=== PATIENT | male | born 1985 ===

== ENCOUNTER 2017-12-09 20:05 | Inpatient (IN) | payer OTHER ==
[~2017-12-09] VITALS: Ht 182.9 cm; Wt 84.4 kg
[2017-12-09] MEDS ORDERED: SODIUM CHLORIDE 0.9% 1000ML 1,000 ML IV STA (20:20)
[2017-12-09] MEDS ORDERED: ONDANSETRON INJ 2 MG/ML 2 ML VIAL IV STA (20:20)
[2017-12-09] MEDS ORDERED: OPTIRAY 320 IV PRN (20:30)
[2017-12-09] MEDS: MoRPHine SULFATE 4 MG/ML 1 ML CARP\\VIAL IV PRN ×2 (20:37→23:10)
[2017-12-09 20:47] LABS: BASO % 0.1 %; BASO ABS # 0.01 K/uL (0-0.2); EOS % 0.1 %; EOS ABS # 0.01 K/uL (0-0.5); HEMATOCRIT 41.6 % (42-52); HEMOGLOBIN 14.9 g/dL (14.0-18.0); IG# 0.04 K/uL (0.00-0.02); LYMPH % 8.9 %; LYMPH ABS # 1.35 K/uL (1.2-3.4); MEAN CELL VOLUME 84.4 fL (80-100); MEAN CORPUSCULAR HEMOGLOBIN 30.2 pg (25-34); MEAN CORPUSCULAR HGB CONC 35.8 g/dl (32-36); MEAN PLATELET VOLUME 9.5 fL (7.4-10.4); MONO % 6.8 %; MONO ABS # 1.04 K/uL (0.11-0.59); NEUT % 83.8 %; NEUT ABS # 12.75 K/uL (1.4-6.5); PLATELET COUNT 213 K/uL (130-400); RED CELL DISTRIBUTION WIDTH CV 12.2 % (11.5-14.5); RED CELL DISTRIBUTION WIDTH SD 37.4 fL (36.4-46.3)
--- NOTE | 2017-12-09 20:51 | EMERGENCY ROOM VISIT NOTE ---
History Report prepared by Eddie: Patito Pinzon Under the Supervision of: Dr. Mckinley Brandon D.O. First contact with patient: 20:18 Chief Complaint: ABDOMINAL PAIN Stated Complaint: ABD PAIN History of Present Illness The patient is a 31 year old male who presents to the Emergency Room with complaints of persistent right lower abdominal quadrant abdominal pain that began earlier today. He reports that he has been experiencing increasing tenderness in the right lower quadrant and vomiting. The patient denies any diarrhea, fevers, back pain, or testicular pain. He reports that he had a similar episode about 3 years ago, noting that he was treated with antibiotics. The patient notes a history of atrial fibrillation. Source of History: patient Onset: earlier today Position: abdomen (RLQ) Quality: other (abdominal pain) Timing: other (persistent) Associated Symptoms: + vomiting, No fevers, No back pain, No diarrhea Note: Patient denies testicular pain. Review of Systems See HPI for pertinent positives & negatives. A total of 10 systems reviewed and were otherwise negative. Past Medical & Surgical Medical Problems: (1) Atrial fibrillation Family History Patient reports no known family medical history. No pertinent family history. Social History Smoking Status: Never Smoker Smokeless Tobacco Use: No Alcohol Use: none Drug Use: none Marital Status: Housing Status: lives with significant other Occupation Status: employed Current/Historical Medications No Active Prescriptions or Reported Meds Allergies Coded Allergies: No Known Allergies (Unverified , 12/09/17) Physical Exam Vital Signs Date Time Temp Pulse Resp B/P (MAP) Pulse Ox O2 Delivery O2 Flow Rate FiO2 12/09/17 22:05 88 18 150/75 97 Room Air 12/09/17 20:14 37.5 92 18 143/82 97 Room Air Physical Exam GENERAL: Patient is awake, alert, and in no acute distress. Patient is very anxious appearing and uncomfortable. EYES: The conjunctivae are clear. The pupils are round and reactive. EARS, NOSE, MOUTH AND THROAT: The nose is without any evidence of any deformity. Mucous membranes are moist tongue is midline NECK: The neck is nontender and supple. RESPIRATORY: Normal respiratory effort is noted there is no evidence of wheezing rhonchi or rales CARDIOVASCULAR: Regular rate and rhythm noted there no murmurs rubs or gallops normal S1 normal S2 GASTROINTESTINAL: The abdomen is soft with right lower quadrant tenderness to palpation and guarding in the right lower quadrant. BACK: No midline tenderness or or step-off noted range of motion in flexion extension as well as rotation no signs of muscle spasm noted MUSCULOSKELETAL/EXTREMITIES: There is no evidence of gross deformity full range of motion is noted in the hips and shoulders SKIN: There is no obvious evidence of any rash. There are no petechiae, pallor or cyanosis noted. NEUROLOGIC: Patient is awake alert and oriented x3 strength is symmetric patellar reflexes are 2+ bilaterally Medical Decision & Procedures ER Provider Diagnostic Interpretation: Radiology results as stated below per my review and radiologist interpretation: ABD/PELVIS IV CONTRAST ONLY CT DOSE: 353.75 mGy.cm HISTORY: Flank pain RLQ pain TECHNIQUE: Multiaxial CT images of the abdomen and pelvis were performed following the use of intravenous contrast. A dose lowering technique was utilized adhering to the principles of ALARA. COMPARISON STUDY: None. FINDINGS: Lung bases are clear. Liver spleen and pancreas enhance uniformly. Kidneys are negative for hydronephrosis. The upper abdominal bowel pattern is nonobstructive. The right flank demonstrates a distended appendix with associated appendicolith. Maximum diameters 1.5 cm. There is moderate surrounding periappendiceal infiltrative change with a trace amount of reactive fluid. There is air-containing elements throughout in this region appear to be bowel related to rather than extraluminal air. Well-defined drainable abscess or collection is not appreciated. There is a small amount of free fluid within the pelvic cul-de-sac. There are findings of scattered colonic diverticuli. There is no evidence for diverticulitis. IMPRESSION: 1. Acute appendicitis. 2. The appendix is distended to 1.5 cm with a contained appendicolith. 3. Moderate amount of periappendiceal infiltrative change combined with a small amount of surrounding reactive fluid. 4. No evidence for drainable abscess or collection at the current time. The above report was generated using voice recognition software. It may contain grammatical, syntax or spelling errors. Electronically signed by: Chi Wadsworth M.D. 12/09/2017 9:59 PM Dictated Date/Time: 12/09/2017 9:56 PM Laboratory Results Test 12/09/17 20:35 Urine Color YELLOW Urine Appearance CLEAR (CLEAR) Urine pH 5.5 (4.5-7.5) Urine Specific [place] 1.012 (1.000-1.030) Urine Protein NEG (NEG) Urine Glucose (UA) NEG (NEG) Urine Ketones NEG (NEG) Urine Occult Blood NEG (NEG) Urine Nitrite NEG (NEG) Urine Bilirubin NEG (NEG) Urine Urobilinogen NEG (NEG) Urine Leukocyte Esterase NEG (NEG) Direct Bilirubin 0.3 mg/dl (0-0.2) Lipase 62 U/L (73-393) Laboratory results per my review. Medications Administered Medications (Trade) Dose Ordered Sig/Cheko Route Start Time Stop Time Status Last Admin Dose Admin Sodium Chloride 1,000 ml @ 999 mls/hr Q1H1M STAT IV 12/09/17 20:20 12/09/17 21:20 DC 12/09/17 20:38 999 MLS/HR Ondansetron HCl (Zofran Inj) 4 mg NOW STAT IV 12/09/17 20:20 12/09/17 20:22 DC 12/09/17 20:37 4 MG Morphine Sulfate (MoRPHine SULFATE INJ) 4 mg Q15M PRN IV 12/09/17 20:30 12/10/17 01:21 DC 12/09/17 23:10 4 MG Piperacillin Sod/ Tazobactam Sod (Zosyn Iv) 4.5 gm NOW STAT IV 12/09/17 23:02 12/09/17 23:03 DC 12/09/17 23:10 4.5 GM Ondansetron HCl (Zofran Inj) 4 mg Q6H PRN IV 12/10/17 00:00 01/09/18 00:00 12/10/17 04:27 4 MG Morphine Sulfate (MoRPHine SULFATE INJ) 4 mg Q4H PRN IV 12/10/17 00:00 12/24/17 00:00 12/10/17 15:30 4 MG ED Course 2015: The patient was evaluated in room B8. A complete history and physical examination were performed. 2020: Ordered Zofran Inj 4mg IV and Sodium Chloride 1000 ml @ 999 mls/hr IV. 2029: Ordered Morphine Sulfate 4mg IV and Ioversol 100ml IV. 2302: Ordered Zosyn 4.5gm IV. 2309: I discussed the patient's case with Dr. Brooks, [facility] hospitalist. The patient will be evaluated for further management. 2315: I reevaluated the patient, who was resting. I updated him on test findings and the treatment plan. He verbalized agreement and understanding. He will contact the surgeon he would like to operate on him in the morning. Medical Decision Prior records/ancillary studies reviewed. Triage Nursing notes reviewed. The patient's history was concerning for abdominal pain. Differential diagnosis: Etiologies such as appendicitis, diverticulitis, PUD, biliary pathology, UTI, pancreatitis, obstruction, mesenteric ischemia, aortic pathology, infections, inflammatory bowel disease, renal colic, as well as others were entertained. The patient is a 31-year-old male who presented to the emergency department for right lower quadrant abdominal pain. The patient's history and physical exam appear to be consistent with appendicitis. The patient's laboratory and radiographic studies confirmed appendicitis. I discussed the patient's laboratory and radiographic studies with him. He was treated with IV fluids and IV and a biotics. I [facility] the request of the patient and his significant other because they wanted to try to defer surgery until the mornings they could have the surgical group with her choice. I discussed that this was not a standard approach in the the patient would normally need to go to surgery as soon as possible given the diagnosis. The patient wishes to defer surgery at this time. I did discuss with him that if his symptoms worsened or changed he would likely need to go to the OR immediately with the on-call surgeon who is currently available. The patient was agreeable to this plan. Medication Reconcilliation Current Medication List: was personally reviewed by me Blood Pressure Screening Patient's blood pressure: Elevated blood pressure Blood pressure disposition: Elevated BP felt to be situational Consults Time Called: 2308 Consulting Physician: Dr. Brooks [facility] hospitalist Returned Call: 2308 I discussed the patient's case with Dr. Brooks [facility] hospitalist. The patient will be evaluated for further management. Impression Primary Impression: Acute appendicitis Additional Impression: Right lower quadrant abdominal pain Scribe Attestation The scribe's documentation has been prepared under my direction and personally reviewed by me in its entirety. I confirm that the note above accurately reflects all work, treatment, procedures, and medical decision making performed by me. Departure Information Dispostion Being Evaluated By Hospitalist Prescriptions No Active Prescriptions or Reported Meds Forms Call Back Authorization, HOME CARE DOCUMENTATION FORM, IMPORTANT VISIT INFORMATION Patient Instructions My [facility] Problem Qualifiers Primary Impression: Acute appendicitis Acute appendicitis type: with localized peritonitis Qualified Codes: K35.3 - Acute appendicitis with localized peritonitis
[2017-12-09 21:12] LABS: ALBUMIN 3.9 gm/dl (3.4-5.0); CALCIUM 8.5 mg/dl (8.5-10.1); CREATININE 1.3 mg/dl (0.60-1.40); POTASSIUM 3.7 mmol/L (3.5-5.1)
[2017-12-09 21:15] LABS: TOTAL PROTEIN 7.5 gm/dl (6.4-8.2)
--- NOTE | 2017-12-09 22:01 | DIAGNOSTIC IMAGING REPORT ---
ABD/PELVIS IV CONTRAST ONLY CT DOSE: 353.75 mGy.cm HISTORY: Flank pain RLQ pain TECHNIQUE: Multiaxial CT images of the abdomen and pelvis were performed following the use of intravenous contrast. A dose lowering technique was utilized adhering to the principles of ALARA. COMPARISON STUDY: None. FINDINGS: Lung bases are clear. Liver spleen and pancreas enhance uniformly. Kidneys are negative for hydronephrosis. The upper abdominal bowel pattern is nonobstructive. The right flank demonstrates a distended appendix with associated appendicolith. Maximum diameters 1.5 cm. There is moderate surrounding periappendiceal infiltrative change with a trace amount of reactive fluid. There is air-containing elements throughout in this region appear to be bowel related to rather than extraluminal air. Well-defined drainable abscess or collection is not appreciated. There is a small amount of free fluid within the pelvic cul-de-sac. There are findings of scattered colonic diverticuli. There is no evidence for diverticulitis. IMPRESSION: 1. Acute appendicitis. 2. The appendix is distended to 1.5 cm with a contained appendicolith. 3. Moderate amount of periappendiceal infiltrative change combined with a small amount of surrounding reactive fluid. 4. No evidence for drainable abscess or collection at the current time. The above report was generated using voice recognition software. It may contain grammatical, syntax or spelling errors. Electronically signed by: Chi Wadsworth M.D. 12/09/2017 9:59 PM Dictated Date/Time: 12/09/2017 9:56 PM
[2017-12-09] MEDS ORDERED: PIPERACILLIN/TAZOBACTAM 4.5 GM/100ML D5W IV STA (23:02)
--- NOTE | 2017-12-09 23:22 | History and Physical ---
History & Physical Date & Time of Service: Dec 09, 2017 at 23:22 Chief Complaint: Abd Pain Primary Care Physician: No Doctor, Assigned History of Present Illness Source: patient 31 yo M presenting acute abdominal pain since 5 am this morning. Pain awoke him from sleep. Patient reports RLQ pain, initially diffuse then more sharp and localized , 5-8/10 intensity. He also reports nausea, 2 episodes of emesis , no fever, no diarrhea, dec'd appetite. He reports similar symptoms 4 years ago, treated medically with antibiotics for possible appendicitis diagnosed clinically. Symptoms resolved with therapy . no urinary symptoms, no hematemesis , no melena, no diarrhea. Past Medical/Surgical History RLQ Pain Acute Appendicitis Family History Hypertension Social History Smoking Status: Never Smoker Smokeless Tobacco Use: No Alcohol Use: none Drug Use: none Marital Status: Occupational Status: employed Immunizations History of Influenza Vaccine: Unknown History of Tetanus Vaccine?: Unknown History of Pneumococcal: Unknown History of Hepatitis B Vaccine: Unknown Allergies Coded Allergies: No Known Allergies (Unverified , 12/09/17) Home Medications No Active Prescriptions or Reported Meds Review of Systems Constitutional: No fever, No chills Respiratory: No cough, No sputum, No shortness of breath Cardiovascular: No chest pain, No edema, No palpitations Abdomen: + pain (RLQ), + nausea, + vomiting, No diarrhea, No GI bleeding Musculoskeletal: No swelling, No calf pain Genitourinary - Male: No hematuria, No dysuria, No urinary frequency, No urinary urgency Hematologic / Lymphatic: No abnormal bleeding/bruising, No swollen lymph nodes Integumentary: No rash, No itch Physical Exam Vital Signs Date Time Temp Pulse Resp B/P (MAP) Pulse Ox O2 Delivery O2 Flow Rate FiO2 12/09/17 22:05 88 18 150/75 97 Room Air 12/09/17 20:14 37.5 92 18 143/82 97 Room Air General Appearance: WD/WN, no apparent distress Eyes: PERRL, EOMI, sclerae normal Neck: supple, no adenopathy, no carotid bruits, trachea midline Respiratory/Chest: lungs clear, normal breath sounds, no respiratory distress Cardiovascular: regular rate, rhythm, no edema, no murmur, normal peripheral pulses Abdomen/GI: normal bowel sounds, soft, no organomegaly, + tenderness (RLQ ), + pertinent finding (no guarding, no rebound tenderness) Back: normal inspection, normal range of motion Extremities/Musculoskelatal: normal inspection, no calf tenderness, no pedal edema Neurologic/Psych: alert, normal mood/affect Skin: normal color, warm/dry, no rash Diagnostics Laboratory Results Results Past 24 Hours Test 12/09/17 20:35 Range/Units White Blood Count 15.20 4.8-10.8 K/uL Red Blood Count 4.93 4.7-6.1 M/uL Hemoglobin 14.9 14.0-18.0 g/dL Hematocrit 41.6 42-52 % Mean Corpuscular Volume 84.4 80-100 fL Mean Corpuscular Hemoglobin 30.2 25-34 pg Mean Corpuscular Hemoglobin Concent 35.8 32-36 g/dl Platelet Count 213 130-400 K/uL Mean Platelet Volume 9.5 7.4-10.4 fL Neutrophils (%) (Auto) 83.8 % Lymphocytes (%) (Auto) 8.9 % Monocytes (%) (Auto) 6.8 % Eosinophils (%) (Auto) 0.1 % Basophils (%) (Auto) 0.1 % Neutrophils # (Auto) 12.75 1.4-6.5 K/uL Lymphocytes # (Auto) 1.35 1.2-3.4 K/uL Monocytes # (Auto) 1.04 0.11-0.59 K/uL Eosinophils # (Auto) 0.01 0-0.5 K/uL Basophils # (Auto) 0.01 0-0.2 K/uL RDW Standard Deviation 37.4 36.4-46.3 fL RDW Coefficient of Variation 12.2 11.5-14.5 % Immature Granulocyte % (Auto) 0.3 % Immature Granulocyte # (Auto) 0.04 0.00-0.02 K/uL Urine Color YELLOW Urine Appearance CLEAR CLEAR Urine pH 5.5 4.5-7.5 Urine Specific [place] 1.012 1.000-1.030 Urine Protein NEG NEG Urine Glucose (UA) NEG NEG Urine Ketones NEG NEG Urine Occult Blood NEG NEG Urine Nitrite NEG NEG Urine Bilirubin NEG NEG Urine Urobilinogen NEG NEG Urine Leukocyte Esterase NEG NEG Sodium Level 135 136-145 mmol/L Potassium Level 3.7 3.5-5.1 mmol/L Chloride Level 101 98-107 mmol/L Carbon Dioxide Level 29 21-32 mmol/L Anion Gap 5.0 3-11 mmol/L Blood Urea Nitrogen 10 7-18 mg/dl Creatinine 1.30 0.60-1.40 mg/dl Est Creatinine Clear Calc Drug Dose 90.4 ml/min Estimated GFR () 84.3 Estimated GFR (Non- 72.7 BUN/Creatinine Ratio 7.5 10-20 Random Glucose 111 70-99 mg/dl Calcium Level 8.5 8.5-10.1 mg/dl Total Bilirubin 1.6 0.2-1 mg/dl Direct Bilirubin 0.3 0-0.2 mg/dl Aspartate Amino Transf (AST/SGOT) 21 15-37 U/L Alanine Aminotransferase (ALT/SGPT) 26 12-78 U/L Alkaline Phosphatase 77 45-117 U/L Total Protein 7.5 6.4-8.2 gm/dl Albumin 3.9 3.4-5.0 gm/dl Lipase 62 73-393 U/L Diagnostic Radiology ABD/PELVIS IV CONTRAST ONLY CT DOSE: 353.75 mGy.cm HISTORY: Flank pain RLQ pain TECHNIQUE: Multiaxial CT images of the abdomen and pelvis were performed following the use of intravenous contrast. A dose lowering technique was utilized adhering to the principles of ALARA. COMPARISON STUDY: None. FINDINGS: Lung bases are clear. Liver spleen and pancreas enhance uniformly. Kidneys are negative for hydronephrosis. The upper abdominal bowel pattern is nonobstructive. The right flank demonstrates a distended appendix with associated appendicolith. Maximum diameters 1.5 cm. There is moderate surrounding periappendiceal infiltrative change with a trace amount of reactive fluid. There is air-containing elements throughout in this region appear to be bowel related to rather than extraluminal air. Well-defined drainable abscess or collection is not appreciated. There is a small amount of free fluid within the pelvic cul-de-sac. There are findings of scattered colonic diverticuli. There is no evidence for diverticulitis. IMPRESSION: 1. Acute appendicitis. 2. The appendix is distended to 1.5 cm with a contained appendicolith. 3. Moderate amount of periappendiceal infiltrative change combined with a small amount of surrounding reactive fluid. 4. No evidence for drainable abscess or collection at the current time. Impression Assessment and Plan 31 yo M presenting with RLQ pain, CT findings consistent with Appendicitis Acute Appendicitis - RLQ pain , afebrile, +leukocytosis - previous history of medically managed suspected appendicitis 4 yrs prior - CT abdomen: appendicitis. distended appendix with appendicolith - Admit to Med/Surg - IV NS 100 mls/hr - IV Zosyn 4.5 q8 - CBC, CMP - General Surgery consult Paroxysmal Afib - currently RRR - has never been treated for rate control or anticoagulation - F/u EKG DVT PPX - SCD's only Code: Full Patient declines for iron miner blasting surgeon Dr. Mcbride to assess him for surgery. [facility]. Patient made aware of risks of no surgery including rupture, sepsis. Patient understands and prefers antibiotic until he can be seen by another surgeon. Attending addendum: I have physically seen this patient, have supervised the medical residents activities, and agree with the H&P unless as otherwise noted. Assessment and Plan: Acute appendicitis-- Surgical preference as noted above. Patient is aware of potential complications including peritonitis, worsening general condition requiring urgent surgery. Zosyn 4.5 g IV every 8 hours. Morphine sulfate 4 mg IV every 4 hours as needed. Zofran 4 mg IV every 6 hours as needed. CBCD, chemistry profile and magnesium level in the a.m. General surgery [facility] consult per patient request in the a.m. Patient is aware, as is his who is present, that if he has any worsening symptoms overnight, the on-call surgeon will be called, and he is agreeable to surgery at that time. Paroxysmal atrial fibrillation-- Reportedly had one episode in the past, that did not require treatment. EKG is normal. Follow clinical examination, vital signs and laboratories to be repeated in the a.m. Advanced Directives Existing Advance Directive: No Existing Living Will: No Existing Power of Vp Business Development: No Resuscitation Status VTE Prophylaxis Will order VTE Prophylaxis: Yes Social Service Consult None Apply Note Total Time: Critical Care 30 - 74 minutes Resident Tracking Resident Involvement: Resident Care Provided Care Provided: Adult Hospital Medicine
[2017-12-10] VITALS (12 sets, daily range): BP systolic 106–163; BP diastolic 63–84; PULSE 65–93; TEMP 36.7–37.6; O2SAT 95–99; Ht 182.9 cm; Wt 84.4 kg
[2017-12-10] MEDS ORDERED: POLYETHYLENE (MIRALAX) 17 GM PACK PO PRN
[2017-12-10] MEDS ORDERED: ACETAMINOPHEN 325 MG TAB PO PRN
[2017-12-10] MEDS ORDERED: PIPERACILL/TAZOBAC CONSULT ACTIVE PRN
[2017-12-10] MEDS ORDERED: PIPERACILL/TAZOBAC IV 4.5 GM in DEXTROSE 5% 100ML 100 ML IV SCH ×2
[2017-12-10] MEDS ORDERED: MAGNESIUM HYDROXIDE SUSP 30 ML UDC PO PRN
[2017-12-10] MEDS: SODIUM CHLORIDE 0.9% 1000ML 1,000 ML IV SCH ×3 (01:30→22:47)
[2017-12-10] MEDS: PIPERACILL/TAZOBAC IV 3.375 GM in NSS 100ML IV SCH ×4 (03:52→19:45)
[2017-12-10] MEDS: MoRPHine SULFATE 4 MG/ML 1 ML CARP\\VIAL IV PRN ×2 (03:52→15:30)
[2017-12-10] MEDS ORDERED: HYDROmorphone INJ 2 MG/ML SYR/VIAL IV STA (04:33)
[2017-12-10] MEDS ORDERED: CEFOXITIN SOD 2 GM VIAL IV STA (05:18)
--- NOTE | 2017-12-10 05:18 | Surgery Consultation ---
Consultation Date of Consultation: Dec 10, 2017. Attending Physician: Willie Brooks M.D. History of Present Illness 31 yo M presenting acute abdominal pain since 5 am this morning. Pain awoke him from sleep. Patient reports RLQ pain, initially diffuse then more sharp and localized , 5-8/10 intensity. He also reports nausea, 2 episodes of emesis , no fever, no diarrhea, dec'd appetite. He reports similar symptoms 4 years ago, treated medically with antibiotics for possible appendicitis diagnosed clinically. Symptoms resolved with therapy . no urinary symptoms, no hematemesis , no melena, no diarrhea. I got call for consult this pt, because of worse abdominal pain, pt wants to conservative treatment of his acute appendicitis, now pt's abdominal pain is worse, pt his want to do appendectomy Past Medical/Surgical History Medical Problems: (1) Acute appendicitis Status: Acute (2) Right lower quadrant abdominal pain Status: Acute Family History Patient reports no known family medical history. Social History Smoking Status: Never Smoker Smokeless Tobacco Use: No Alcohol Use: none Drug Use: none Marital Status: Housing Status: lives with significant other Occupation Status: employed Allergies Coded Allergies: No Known Allergies (Unverified , 12/09/17) Home Medications No Active Prescriptions or Reported Meds Current Inpatient Medications Current Inpatient Medications Medications (Trade) Dose Ordered Sig/Cheko Route Start Time Stop Time Status Last Admin Dose Admin Ioversol (Optiray 320) 100 ml UD PRN IV 12/09/17 20:30 12/13/17 20:29 Acetaminophen (Tylenol Tab) 650 mg Q4H PRN PO 12/10/17 00:00 01/09/18 00:00 Al Hydrox/Mg Hydrox/Simethicone (Maalox Max Susp) 15 ml Q4H PRN PO 12/10/17 00:00 01/09/18 00:00 Magnesium Hydroxide (Milk Of Magnesia Susp) 30 ml Q6H PRN PO 12/10/17 00:00 01/09/18 00:00 Polyethylene (Miralax Powder Packet) 17 gm DAILY PRN PO 12/10/17 00:00 01/09/18 00:00 Ondansetron HCl (Zofran Inj) 4 mg Q6H PRN IV 12/10/17 00:00 01/09/18 00:00 12/10/17 04:27 4 MG Morphine Sulfate (MoRPHine SULFATE INJ) 4 mg Q4H PRN IV 12/10/17 00:00 12/24/17 00:00 12/10/17 03:52 4 MG Miscellaneous Information (Consult) 1 ea UD PRN N/A 12/10/17 00:00 01/09/18 00:00 Sodium Chloride 1,000 ml @ 100 mls/hr Q10H IV 12/10/17 02:00 01/09/18 01:59 12/10/17 01:30 100 MLS/HR Piperacillin Sod/ Tazobactam Sod 3.375 gm/Sodium Chloride 115 ml @ 28.75 mls/ hr Q8H IV 12/10/17 04:00 12/20/17 03:59 12/10/17 03:52 28.75 MLS/HR Review of Systems Constitutional: No fever, No chills, No sweats, No weight loss, No weakness, No fatigue, No problem reported Eyes: No worsening of vision, No eye pain, No redness, No discharge, No diplopia, No problem reported ENT: No hearing loss, No unusual epistaxis, No nasal symptoms, No sore throat, No tinnitus, No dental problems, No trouble swallowing, No problem reported Respiratory: No cough, No sputum, No wheezing, No shortness of breath, No dyspnea on exertion, No dyspnea at rest, No hemoptysis, No problem reported Cardiovascular: No chest pain, No orthopnea, No PND, No edema, No claudication , No palpitations, No problem reported Abdomen: + pain, + nausea, + vomiting Musculoskeletal: No joint pain, No muscle pain, No swelling, No calf pain, No problem reported Genitourinary - Male: No hematuria, No dysuria, No urinary frequency, No urinary urgency, No urinary hesitancy, No urinary retention, No urinary incontinence, No penile discharge, No lesions, No impotence, No problem reported Neurologic: No memory loss, No paralysis, No weakness, No numbness/tingling, No vertigo, No balance problems, No problem reported Psychiatric: No depression symptoms, No anhedonism, No anxiety, No insomnia, No substance abuse, No problem reported Endocrine: No fatigue, No excessive thirst, No excessive urination, No problem reported Hematologic / Lymphatic: No abnormal bleeding/bruising, No clotting problems, No swollen lymph nodes, No night sweats, No problem reported Allergic / Immunologic: No environmental allergies, No seasonal allergies, No pet sensitivities, No food allergies, No hives, No frequent infections, No poor healing, No prolonged convalescence, No problem reported Physical Exam Date Time Temp Pulse Resp B/P (MAP) Pulse Ox O2 Delivery O2 Flow Rate FiO2 12/10/17 02:04 37.0 75 16 125/76 Room Air 12/10/17 01:15 Room Air 12/10/17 01:15 37.0 75 16 125/76 (92) 98 Room Air 12/10/17 00:31 79 18 133/65 98 Room Air 12/09/17 22:05 88 18 150/75 97 Room Air 12/09/17 20:14 37.5 92 18 143/82 97 Room Air General Appearance: WD/WN, + mild distress Head: normocephalic Eyes: normal inspection ENT: normal ENT inspection Neck: supple, no JVD Respiratory/Chest: chest non-tender, lungs clear Cardiovascular: regular rate, rhythm, no edema, no gallop, no JVD, no murmur Abdomen/GI: normal bowel sounds, no pulsatile mass, + tenderness (at RLQ, ), + guarding, + rebound Extremities/Musculoskelatal: normal inspection, no calf tenderness, normal capillary refill Neurologic/Psych: no motor/sensory deficits, alert, normal mood/affect Skin: normal color, warm/dry, no rash Lymphatic: no adenopathy Laboratory Results Last 24 Hours Test 12/09/17 20:35 12/10/17 04:44 White Blood Count 15.20 K/uL Red Blood Count 4.93 M/uL Hemoglobin 14.9 g/dL Hematocrit 41.6 % Mean Corpuscular Volume 84.4 fL Mean Corpuscular Hemoglobin 30.2 pg Mean Corpuscular Hemoglobin Concent 35.8 g/dl Platelet Count 213 K/uL Mean Platelet Volume 9.5 fL Neutrophils (%) (Auto) 83.8 % Lymphocytes (%) (Auto) 8.9 % Monocytes (%) (Auto) 6.8 % Eosinophils (%) (Auto) 0.1 % Basophils (%) (Auto) 0.1 % Neutrophils # (Auto) 12.75 K/uL Lymphocytes # (Auto) 1.35 K/uL Monocytes # (Auto) 1.04 K/uL Eosinophils # (Auto) 0.01 K/uL Basophils # (Auto) 0.01 K/uL RDW Standard Deviation 37.4 fL RDW Coefficient of Variation 12.2 % Immature Granulocyte % (Auto) 0.3 % Immature Granulocyte # (Auto) 0.04 K/uL Urine Color YELLOW Urine Appearance CLEAR Urine pH 5.5 Urine Specific [place] 1.012 Urine Protein NEG Urine Glucose (UA) NEG Urine Ketones NEG Urine Occult Blood NEG Urine Nitrite NEG Urine Bilirubin NEG Urine Urobilinogen NEG Urine Leukocyte Esterase NEG Sodium Level 135 mmol/L Potassium Level 3.7 mmol/L Chloride Level 101 mmol/L Carbon Dioxide Level 29 mmol/L Anion Gap 5.0 mmol/L Blood Urea Nitrogen 10 mg/dl Creatinine 1.30 mg/dl Est Creatinine Clear Calc Drug Dose 90.4 ml/min Estimated GFR () 84.3 Estimated GFR (Non- 72.7 BUN/Creatinine Ratio 7.5 Random Glucose 111 mg/dl Calcium Level 8.5 mg/dl Total Bilirubin 1.6 mg/dl Direct Bilirubin 0.3 mg/dl Aspartate Amino Transf (AST/SGOT) 21 U/L Alanine Aminotransferase (ALT/SGPT) 26 U/L Alkaline Phosphatase 77 U/L Total Protein 7.5 gm/dl Albumin 3.9 gm/dl Lipase 62 U/L Assessment & Plan CT scan-FINDINGS: Lung bases are clear. Liver spleen and pancreas enhance uniformly. Kidneys are negative for hydronephrosis. The upper abdominal bowel pattern is nonobstructive. The right flank demonstrates a distended appendix with associated appendicolith. Maximum diameters 1.5 cm. There is moderate surrounding periappendiceal infiltrative change with a trace amount of reactive fluid. There is air-containing elements throughout in this region appear to be bowel related to rather than extraluminal air. Well-defined drainable abscess or collection is not appreciated. There is a small amount of free fluid within the pelvic cul-de-sac. There are findings of scattered colonic diverticuli. There is no evidence for diverticulitis. IMPRESSION: 1. Acute appendicitis. 2. The appendix is distended to 1.5 cm with a contained appendicolith. 3. Moderate amount of periappendiceal infiltrative change combined with a small amount of surrounding reactive fluid. 4. No evidence for drainable abscess or collection at the current time. Assessment: pt is a 31 year old male who presents to ER with one day history RLQ pain, pt had CT scan Dx- acute appendicitis, pt and his want to do conservative treatment first, now pt has worse abdominal pain, pt and his want to do appendectomy, I recommend to do laparoscopic appendectomy, possible open , D/W benefits, risks and alternatives of the procedure, the risks - infection, bleeding, abscess and injury bowel, pt and his understood, they agree with the surgery, I answered all questions,
[2017-12-10] MEDS ORDERED: CEFOXITIN IV 2,000 MG in DEXTROSE 5% 50ML 50 ML IV SCH (06:00)
--- NOTE | 2017-12-10 06:20 | History & Physical Bridge Note ---
H&P Re-Evaluation Bridge Note: I have examined the patient, reviewed the History & Physical and in the interval since the performance of the History & Physical I have noted the following changes of clinical significance: No changes noted
[2017-12-10 06:26] LABS: BASO % 0.1 %; BASO ABS # 0.01 K/uL (0-0.2); EOS % 0.1 %; EOS ABS # 0.01 K/uL (0-0.5); HEMATOCRIT 42.6 % (42-52); HEMOGLOBIN 15.2 g/dL (14.0-18.0); IG# 0.05 K/uL (0.00-0.02); LYMPH % 5.1 %; MEAN CELL VOLUME 85.2 fL (80-100); MEAN CORPUSCULAR HEMOGLOBIN 30.4 pg (25-34); MEAN CORPUSCULAR HGB CONC 35.7 g/dl (32-36); MEAN PLATELET VOLUME 10.2 fL (7.4-10.4); MONO % 5.1 %; MONO ABS # 0.91 K/uL (0.11-0.59); NEUT % 89.3 %; NEUT ABS # 15.91 K/uL (1.4-6.5); PLATELET COUNT 228 K/uL (130-400); RED CELL DISTRIBUTION WIDTH CV 12.3 % (11.5-14.5); WHITE BLOOD COUNT 17.79 K/uL (4.8-10.8)
[2017-12-10] MEDS ORDERED: MIDAZOLAM HCL 1 MG/ML 2ML VIAL ONE (06:34)
[2017-12-10] MEDS ORDERED: FENTANYL CITRATE INJ 50 MCG/1 ML 2 ML VIAL ONE ×2 (06:34→07:18)
[2017-12-10] MEDS ORDERED: PROPOFOL IV EMULSION 10 MG/ML 20 ML VIAL IV ONE (06:41)
[2017-12-10] MEDS ORDERED: LIDOCAINE HCL 2% 2 ML VIAL (20MG/ML) ONE (06:41)
[2017-12-10] MEDS ORDERED: LIDOCAINE HCL 1% 20 ML VIAL ONE (06:49)
[2017-12-10] MEDS ORDERED: BACITRACIN OINT 15 GM TUBE ONE (06:49)
[2017-12-10] MEDS ORDERED: BUPIVACAINE 0.5 % 5 MG/1 ML MPF 30ML VIAL ONE (06:50)
[2017-12-10 07:00] LABS: ALBUMIN 3.6 gm/dl (3.4-5.0); CALCIUM 8.3 mg/dl (8.5-10.1); CREATININE 1.34 mg/dl (0.60-1.40)
[2017-12-10] MEDS ORDERED: LABETALOL HCL IV 5 MG/ML 20ML IV PRN (07:00)
[2017-12-10] MEDS ORDERED: FLUMAZENIL 0.1 MG/1 ML 10 ML VIAL IV PRN (07:00)
[2017-12-10] MEDS ORDERED: MEPERIDINE HCL 25 MG/ML CARP IV PRN (07:00)
[2017-12-10] MEDS ORDERED: EpHEDrine SULFATE INJ 50 MG/ML AMP IV PRN (07:00)
[2017-12-10] MEDS ORDERED: ONDANSETRON INJ 2 MG/ML 2 ML VIAL IV PRN ×2 (07:00)
[2017-12-10] MEDS ORDERED: HYDROmorphone INJ 2 MG/ML SYR/VIAL IV PRN (07:00)
[2017-12-10] MEDS ORDERED: NALOXONE HCL 0.4 MG/1 ML VIAL/CARP IV PRN (07:00)
[2017-12-10] MEDS ORDERED: ATROPINE SULFATE 0.1 MG/ML 5ML SYR IV PRN (07:00)
[2017-12-10] MEDS ORDERED: PHENYLEPHRINE 100MCG/ML 5ML SYR IV PRN (07:00)
[2017-12-10] MEDS ORDERED: DEXAMETHASONE SOD INJ 4 MG/ML VIAL ONE ×2 (07:06→07:18)
[2017-12-10] MEDS ORDERED: ONDANSETRON INJ 2 MG/ML 2 ML VIAL ONE (07:17)
[2017-12-10] MEDS ORDERED: ROCURONIUM BROMIDE 10 MG/ML 5 ML VIAL IV ONE (07:18)
[2017-12-10] MEDS ORDERED: GLYCOPYRROLATE INJ 0.2 MG/ML VIAL ONE (07:28)
[2017-12-10] MEDS ORDERED: NEOSTIGMINE METHYLSULFATE 5 MG/5 ML SYR ONE (07:28)
--- NOTE | 2017-12-10 08:04 | [facility] Post Operative Brief Note ---
Immediate Operative Summary Operative Date Dec 10, 2017. Pre-Operative Diagnosis Acute appendicitis Post-Operative Diagnosis Perforated acute appendicitis, peritonitis Procedure(s) Performed Laparoscopic appendectomy Surgeon Dr. Mcbride [employer] Lead Surgeon(s) Peggy Gill PA-C Estimated Blood Loss 10 ml Findings Consistent with Post-Op Diagnosis Perforated acute appendicitis, peritonitis Fluids (cc crystalloids) 1000ml Specimens A: Appendix Drains JANUSZ x1 Anesthesia Type General Complication(s) none Disposition Accompanied Pt To Recover: yes Disposition: Recovery Room / PACU
[2017-12-10] MEDS: FENTANYL CITRATE INJ 50 MCG/1 ML 2 ML VIAL IV PRN ×2 (08:39→08:45)
--- NOTE | 2017-12-10 08:50 | Anesthesiology Progress Note ---
Anesthesia Post Op Note Date & Time Dec 10, 2017 at 08:50 Vital Signs Pain Intensity: 3 Vital Signs Past 12 Hours Date Time Temp Pulse Resp B/P (MAP) Pulse Ox O2 Delivery O2 Flow Rate FiO2 12/10/17 08:40 85 14 151/81 100 Oxymask 10 12/10/17 08:30 98 22 155/89 100 Oxymask 10 12/10/17 08:21 37.3 115 17 144/86 100 Oxymask 10 12/10/17 05:57 37.0 83 18 133/83 (100) 99 Room Air 12/10/17 02:04 37.0 75 16 125/76 Room Air 12/10/17 01:15 Room Air 12/10/17 01:15 37.0 75 16 125/76 (92) 98 Room Air 12/10/17 00:31 79 18 133/65 98 Room Air 12/09/17 22:05 88 18 150/75 97 Room Air Notes Mental Status: alert / awake / arousable, participated in evaluation Pt Amnestic to Procedure: Yes Nausea / Vomiting: adequately controlled Pain: adequately controlled Airway Patency, RR, SpO2: stable & adequate BP & HR: stable & adequate Hydration State: stable & adequate Anesthetic Complications: no major complications apparent
--- NOTE | 2017-12-10 09:08 | OPERATIVE REPORT ---
DATE OF OPERATION: 12/10/2017 PREOPERATIVE DIAGNOSIS: Acute appendicitis. POSTOPERATIVE DIAGNOSES: Perforated acute appendicitis, peritonitis. OPERATION: Laparoscopic appendectomy. SURGEON: Dr. Christal Mcbride. INTERNET [employer]ER[employer] SPECIALIST: Peggy Gill PA-C ANESTHESIA: General. ESTIMATED BLOOD LOSS: About 10 mL. FINDINGS: Acute appendicitis with perforation and peritonitis. COMPLICATIONS: None. INDICATIONS FOR THE PROCEDURE: This is a 31-year-old gentleman who was admitted to the hospital for acute appendicitis and the patient had a friend who is a surgeon from outside, recommended the patient towards conservative treatment first. However, overnight, the patient developed severe abdominal pain and in the morning today, and I got a call and counseled this patient around 5:00 a.m. today this morning and once I reviewed the CT scan, talked to the patient and did physical exam. I recommended to do laparoscopic appendectomy and possible open. I did talk to the patient and the patient's about the benefit, risk, alternate procedure. I indicated the risks may include but not limited such as bleeding, infection, abscess, injury to the bowel, sepsis. They understand and they agreed to proceed with the procedure. The patient signed informed consent and I answered all questions. DETAILS OF PROCEDURE: We brought the patient to the OR, put the patient in the supine position. The patient received SCD on bilateral legs to prevent DVT. Also, the patient received 2 g cefoxitin IV for prophylactic antibiotic. The patient received general anesthesia without difficulty. The patient also received the insertion of Renner catheter. The abdomen was prepped and draped in routine sterile fashion. After time out, I injected the local anesthesia by using 1% lidocaine mixed with 0.5% Marcaine just above umbilicus and then made a small incision just above umbilicus, opened fascia and opened peritoneum under direct vision, put a Saray trocar in, connected to CO2 to create pneumoperitoneum. Flow rate is 6 L per minute. Pressure not more than 14 mmHg. Once we got nice pneumoperitoneum, we put a camera in, looked around the abdomen. There was some fluid on the pelvis and right upper quadrant area. We did see there significant acute appendicitis in larger also and in the middle part the appendix, early perforation and stool has come out from the appendix. There is some leak from the appendix; the local inflammation is significant and however, no more finding on the liver and another part of the small bowel, large bowel, and the patient also had a right inguinal hernia, but no content in the right inguinal hernia. At this moment, we put another two 5 mm trocar on the left lower quadrant area. Once all trocars in, I put the suction and suctioned all the fluid out, and then we mobilized the appendix again as there is perforation in appendicitis with peritonitis. Then, I used a [place] to make a window on the base of the appendiceal between the appendix and I chose a 45 mm Endo-CATIE staple transection on the base of the appendix, rechecked this, staple line is intact. No leak, no active bleeding. Then I used a harmonic take down of the appendiceal without difficulty. No active bleeding and then we removed the appendix through the catch bag. Also, we picked up with a stone, put back in. Then we removed through the catch bag appendix and the stone, then we reinserted Saray trocar in and used of normal saline to flush the abdomen and suctioned fluid out this morning and then we decided to put the JANUSZ drainage 10 mm. We put a 10 mm JANUSZ drainage on the right lower quadrant area and tapered towards the pelvic area. We checked the staple line intact. No active bleeding, no leak. Then, we removed all trocar under direct vision. No active bleeding from trocar sites. Pneumoperitoneum was released. I then closed the umbilical incision fascial layer by using #1 Vicryl [id number] x2, closed subcutaneous layer by using 2-0 Vicryl continuous running, closed the skin by using 4-0 Vicryl continuous running, closed another two 5 mm trocar site skin only by using 4-0 Vicryl and then we put the dressing on. The patient tolerated the procedure well. All the instrument, needle, sponge count correct x2 at the end of case and the patient transferred to recovery room in stable condition. After the procedure, I did talk to the patient's about the OR finding and procedure we did. She understands. I attest to the content of the Intraoperative Record and any orders documented therein. Any exception s are noted below.
[2017-12-10] MEDS: OXYCODONE/ACETAMINOPHEN 5-325 TAB PO PRN ×2 (18:04→22:47)
--- NOTE | 2017-12-10 18:18 | Surgery Progress Note ---
Surgery Progress Note Date of Service Dec 10, 2017. Subjective F/U S/P lap appy for perforated appendicitis, pt is doing better, no nausea, no vomiting, good control pain, JANUSZ intact. some fluid, look like pus., culture sent. l Objective Vital Signs: Date Time Temp Pulse Resp B/P (MAP) Pulse Ox O2 Delivery O2 Flow Rate FiO2 12/10/17 15:18 37.6 88 16 131/69 (89) 97 Nasal Cannula 3.0 12/10/17 12:15 37.3 80 18 117/71 (86) 97 Nasal Cannula 2.0 12/10/17 11:15 80 16 107/63 (78) 96 12/10/17 10:15 87 16 106/71 (83) 96 12/10/17 09:50 37.0 84 16 137/79 (98) 97 Nasal Cannula 2.0 12/10/17 09:15 Room Air 12/10/17 09:15 95 Nasal Cannula 2.0 12/10/17 09:15 37.4 93 20 135/84 (101) 95 Nasal Cannula 2.0 12/10/17 09:00 90 14 142/84 97 Nasal Cannula 2 12/10/17 08:50 37.8 91 16 130/71 97 Nasal Cannula 2 12/10/17 08:40 85 14 151/81 100 Oxymask 10 12/10/17 08:30 98 22 155/89 100 Oxymask 10 12/10/17 08:21 37.3 115 17 144/86 100 Oxymask 10 12/10/17 05:57 37.0 83 18 133/83 (100) 99 Room Air 12/10/17 02:04 37.0 75 16 125/76 Room Air 12/10/17 01:15 Room Air 12/10/17 01:15 37.0 75 16 125/76 (92) 98 Room Air 12/10/17 00:31 79 18 133/65 98 Room Air 12/09/17 22:05 88 18 150/75 97 Room Air 12/09/17 20:14 37.5 92 18 143/82 97 Room Air General Appearance: WD/WN, no apparent distress Head: normocephalic Neck: supple, no JVD Respiratory/Chest: chest non-tender, lungs clear Cardiovascular: regular rate, rhythm, no edema, no gallop, no JVD Abdomen: normal bowel sounds, non distended, soft, + tenderness Incision(s): clean, dry, intact Extremities: normal range of motion, non-tender, normal inspection Laboratory Results: Results Past 24 Hours Test 12/09/17 20:35 12/10/17 06:05 Range/Units White Blood Count 15.20 17.79 4.8-10.8 K/uL Red Blood Count 4.93 5.00 4.7-6.1 M/uL Hemoglobin 14.9 15.2 14.0-18.0 g/dL Hematocrit 41.6 42.6 42-52 % Mean Corpuscular Volume 84.4 85.2 80-100 fL Mean Corpuscular Hemoglobin 30.2 30.4 25-34 pg Mean Corpuscular Hemoglobin Concent 35.8 35.7 32-36 g/dl Platelet Count 213 228 130-400 K/uL Mean Platelet Volume 9.5 10.2 7.4-10.4 fL Neutrophils (%) (Auto) 83.8 89.3 % Lymphocytes (%) (Auto) 8.9 5.1 % Monocytes (%) (Auto) 6.8 5.1 % Eosinophils (%) (Auto) 0.1 0.1 % Basophils (%) (Auto) 0.1 0.1 % Neutrophils # (Auto) 12.75 15.91 1.4-6.5 K/uL Lymphocytes # (Auto) 1.35 0.90 1.2-3.4 K/uL Monocytes # (Auto) 1.04 0.91 0.11-0.59 K/uL Eosinophils # (Auto) 0.01 0.01 0-0.5 K/uL Basophils # (Auto) 0.01 0.01 0-0.2 K/uL RDW Standard Deviation 37.4 38.0 36.4-46.3 fL RDW Coefficient of Variation 12.2 12.3 11.5-14.5 % Immature Granulocyte % (Auto) 0.3 0.3 % Immature Granulocyte # (Auto) 0.04 0.05 0.00-0.02 K/uL Urine Color YELLOW Urine Appearance CLEAR CLEAR Urine pH 5.5 4.5-7.5 Urine Specific [place] 1.012 1.000-1.030 Urine Protein NEG NEG Urine Glucose (UA) NEG NEG Urine Ketones NEG NEG Urine Occult Blood NEG NEG Urine Nitrite NEG NEG Urine Bilirubin NEG NEG Urine Urobilinogen NEG NEG Urine Leukocyte Esterase NEG NEG Sodium Level 135 137 136-145 mmol/L Potassium Level 3.7 4.0 3.5-5.1 mmol/L Chloride Level 101 104 98-107 mmol/L Carbon Dioxide Level 29 27 21-32 mmol/L Anion Gap 5.0 6.0 3-11 mmol/L Blood Urea Nitrogen 10 11 7-18 mg/dl Creatinine 1.30 1.34 0.60-1.40 mg/dl Est Creatinine Clear Calc Drug Dose 90.4 95.4 ml/min Estimated GFR () 84.3 81.2 Estimated GFR (Non- 72.7 70.1 BUN/Creatinine Ratio 7.5 8.1 10-20 Random Glucose 111 129 70-99 mg/dl Calcium Level 8.5 8.3 8.5-10.1 mg/dl Total Bilirubin 1.6 2.1 0.2-1 mg/dl Direct Bilirubin 0.3 0-0.2 mg/dl Aspartate Amino Transf (AST/SGOT) 21 15 15-37 U/L Alanine Aminotransferase (ALT/SGPT) 26 23 12-78 U/L Alkaline Phosphatase 77 68 45-117 U/L Total Protein 7.5 7.0 6.4-8.2 gm/dl Albumin 3.9 3.6 3.4-5.0 gm/dl Lipase 62 73-393 U/L Globulin 3.4 2.5-4.0 gm/dl Albumin/Globulin Ratio 1.1 0.9-2 Microbiology Results 12/10/17 Gram Stain, Received Pending 12/10/17 Wound Culture, Received Pending Assessment & Plan full liquid diet, OOB repeat labs in am, ID consult will F/U full liquids
--- NOTE | 2017-12-10 18:47 | Family Medicine Progress Note ---
Progress Note Date of Service Dec 10, 2017. Subjective Pt evaluation today including: conversation w/ patient, physical exam, chart review, lab review Pain: 5/10 post surgery PO Intake: tolerating full liquids Voiding: no voiding problems Constitutional: No fever, No chills Respiratory: No shortness of breath Cardiovascular: No chest pain Abdomen: + pain, No nausea, No vomiting Male : No dysuria Medications Current Inpatient Medications Medications (Trade) Dose Ordered Sig/Cheko Route Start Time Stop Time Status Last Admin Dose Admin Ioversol (Optiray 320) 100 ml UD PRN IV 12/09/17 20:30 12/13/17 20:29 Acetaminophen (Tylenol Tab) 650 mg Q4H PRN PO 12/10/17 00:00 01/09/18 00:00 Al Hydrox/Mg Hydrox/Simethicone (Maalox Max Susp) 15 ml Q4H PRN PO 12/10/17 00:00 01/09/18 00:00 Magnesium Hydroxide (Milk Of Magnesia Susp) 30 ml Q6H PRN PO 12/10/17 00:00 01/09/18 00:00 Polyethylene (Miralax Powder Packet) 17 gm DAILY PRN PO 12/10/17 00:00 01/09/18 00:00 Ondansetron HCl (Zofran Inj) 4 mg Q6H PRN IV 12/10/17 00:00 01/09/18 00:00 12/10/17 04:27 4 MG Morphine Sulfate (MoRPHine SULFATE INJ) 4 mg Q4H PRN IV 12/10/17 00:00 12/24/17 00:00 12/10/17 15:30 4 MG Miscellaneous Information (Consult) 1 ea UD PRN N/A 12/10/17 00:00 01/09/18 00:00 Sodium Chloride 1,000 ml @ 100 mls/hr Q10H IV 12/10/17 02:00 01/09/18 01:59 12/10/17 13:53 100 MLS/HR Piperacillin Sod/ Tazobactam Sod 3.375 gm/Sodium Chloride 115 ml @ 28.75 mls/ hr Q8H IV 12/10/17 04:00 12/20/17 03:59 12/10/17 12:06 28.75 MLS/HR Oxycodone/ Acetaminophen (Percocet 5-325mg Tab) 1 tab Q4H PRN PO 12/10/17 16:45 12/24/17 16:44 12/10/17 18:04 1 TAB Objective Vital Signs Date Time Temp Pulse Resp B/P (MAP) Pulse Ox O2 Delivery O2 Flow Rate FiO2 12/10/17 15:18 37.6 88 16 131/69 (89) 97 Nasal Cannula 3.0 12/10/17 12:15 37.3 80 18 117/71 (86) 97 Nasal Cannula 2.0 12/10/17 11:15 80 16 107/63 (78) 96 12/10/17 10:15 87 16 106/71 (83) 96 12/10/17 09:50 37.0 84 16 137/79 (98) 97 Nasal Cannula 2.0 12/10/17 09:15 Room Air 12/10/17 09:15 95 Nasal Cannula 2.0 12/10/17 09:15 37.4 93 20 135/84 (101) 95 Nasal Cannula 2.0 12/10/17 09:00 90 14 142/84 97 Nasal Cannula 2 12/10/17 08:50 37.8 91 16 130/71 97 Nasal Cannula 2 12/10/17 08:40 85 14 151/81 100 Oxymask 10 12/10/17 08:30 98 22 155/89 100 Oxymask 10 12/10/17 08:21 37.3 115 17 144/86 100 Oxymask 10 12/10/17 05:57 37.0 83 18 133/83 (100) 99 Room Air 12/10/17 02:04 37.0 75 16 125/76 Room Air 12/10/17 01:15 Room Air 12/10/17 01:15 37.0 75 16 125/76 (92) 98 Room Air 12/10/17 00:31 79 18 133/65 98 Room Air 12/09/17 22:05 88 18 150/75 97 Room Air 12/09/17 20:14 37.5 92 18 143/82 97 Room Air Physical Exam General Appearance: no apparent distress Eyes: normal inspection Neck: supple Respiratory/Chest: lungs clear, normal breath sounds Cardiovascular: regular rate, rhythm, no murmur Abdomen: normal bowel sounds, soft, + tenderness (over appendectomy surgical site), + pertinent finding (JANUSZ drain with serosanguinous discharge) Extremities: non-tender, no pedal edema Neurologic/Psychiatric: alert, oriented x 3 Skin: + pertinent finding (Abdominal surgical site dressed C/D/I) Laboratory Results 12/10/17 06:05 Red Blood Count 5.00, Mean Corpuscular Volume 85.2, Mean Corpuscular Hemoglobin 30.4, Mean Corpuscular Hemoglobin Concent 35.7, Mean Platelet Volume 10.2, Neutrophils (%) (Auto) 89.3, Lymphocytes (%) (Auto) 5.1, Monocytes (%) (Auto) 5.1, Eosinophils (%) (Auto) 0.1, Basophils (%) (Auto) 0.1, Neutrophils # (Auto) 15.91, Lymphocytes # (Auto) 0.90, Monocytes # (Auto) 0.91, Eosinophils # (Auto) 0.01, Basophils # (Auto) 0.01 12/10/17 06:05 Test 12/09/17 20:35 12/10/17 06:05 Urine Color YELLOW Urine Appearance CLEAR (CLEAR) Urine pH 5.5 (4.5-7.5) Urine Specific Jay 1.012 (1.000-1.030) Urine Protein NEG (NEG) Urine Glucose (UA) NEG (NEG) Urine Ketones NEG (NEG) Urine Occult Blood NEG (NEG) Urine Nitrite NEG (NEG) Urine Bilirubin NEG (NEG) Urine Urobilinogen NEG (NEG) Urine Leukocyte Esterase NEG (NEG) Direct Bilirubin 0.3 mg/dl (0-0.2) Lipase 62 U/L (73-393) White Blood Count 17.79 K/uL (4.8-10.8) Red Blood Count 5.00 M/uL (4.7-6.1) Hemoglobin 15.2 g/dL (14.0-18.0) Hematocrit 42.6 % (42-52) Mean Corpuscular Volume 85.2 fL (80-100) Mean Corpuscular Hemoglobin 30.4 pg (25-34) Mean Corpuscular Hemoglobin Concent 35.7 g/dl (32-36) Platelet Count 228 K/uL (130-400) Mean Platelet Volume 10.2 fL (7.4-10.4) Neutrophils (%) (Auto) 89.3 % Lymphocytes (%) (Auto) 5.1 % Monocytes (%) (Auto) 5.1 % Eosinophils (%) (Auto) 0.1 % Basophils (%) (Auto) 0.1 % Neutrophils # (Auto) 15.91 K/uL (1.4-6.5) Lymphocytes # (Auto) 0.90 K/uL (1.2-3.4) Monocytes # (Auto) 0.91 K/uL (0.11-0.59) Eosinophils # (Auto) 0.01 K/uL (0-0.5) Basophils # (Auto) 0.01 K/uL (0-0.2) RDW Standard Deviation 38.0 fL (36.4-46.3) RDW Coefficient of Variation 12.3 % (11.5-14.5) Immature Granulocyte % (Auto) 0.3 % Immature Granulocyte # (Auto) 0.05 K/uL (0.00-0.02) Anion Gap 6.0 mmol/L (3-11) Est Creatinine Clear Calc Drug Dose 95.4 ml/min Estimated GFR () 81.2 Estimated GFR (Non- 70.1 BUN/Creatinine Ratio 8.1 (10-20) Calcium Level 8.3 mg/dl (8.5-10.1) Total Bilirubin 2.1 mg/dl (0.2-1) Aspartate Amino Transf (AST/SGOT) 15 U/L (15-37) Alanine Aminotransferase (ALT/SGPT) 23 U/L (12-78) Alkaline Phosphatase 68 U/L (45-117) Total Protein 7.0 gm/dl (6.4-8.2) Albumin 3.6 gm/dl (3.4-5.0) Globulin 3.4 gm/dl (2.5-4.0) Albumin/Globulin Ratio 1.1 (0.9-2) Assessment and Plan 31 yo M with hx of paroxysmal Afib admitted for RLQ pain, and CT findings consistent with Appendicitis. S/p appendectomy day 0. Acute Appendicitis - RLQ pain, afebrile, +leukocytosis - previous history of medically managed suspected appendicitis 4 yrs prior - CT abdomen: appendicitis. distended appendix with appendicolith - IV NS 100 mls/hr - IV Zosyn 4.5 q8 - Tylenol, Percocet and Morphine for pain as needed - Zofran PRN for nausea - General Surgery consulted - s/p appendectomy day 0 Paroxysmal Afib - currently with RRR - has never been treated for rate control or anticoagulation DVTP: SCD's only Code: Full Diet: clear liquid diet Resident Physician Supervision Note: I interviewed and examined the patient. Discussed with Dr. Espinal and agree with findings and plan as documented in the note. Any exceptions or clarifications are listed here: Post op Day 0 lap appendectomy for acute appendicitis and peritonitis. Afebrile upon my exam; some lower abdominal pain, although improved compared to pre operative pain. Pain control, Zosyn, and continue IV hydration until PO improves. Documented By: Sumeet Michael Resident Involvement: Resident Care Provided Care Provided: Adult Hospital Medicine
[2017-12-11] MEDS: OXYCODONE/ACETAMINOPHEN 5-325 TAB PO PRN ×5 (03:18→20:22)
[2017-12-11] MEDS: PIPERACILL/TAZOBAC IV 3.375 GM in NSS 100ML IV SCH ×3 (03:19→20:22)
[2017-12-11 03:28] VITALS: BP 134/81; PULSE 66; TEMP 37; O2SAT 96
[2017-12-11 07:06] VITALS: BP 103/64; PULSE 66; TEMP 36.7; O2SAT 95
[2017-12-11] MEDS: SODIUM CHLORIDE 0.9% 1000ML 1,000 ML IV SCH ×2 (07:34→18:05)
[2017-12-11 08:00] LABS: BASO % 0.1 %; BASO ABS # 0.01 K/uL (0-0.2); EOS % 0.2 %; EOS ABS # 0.03 K/uL (0-0.5); HEMATOCRIT 37.6 % (42-52); HEMOGLOBIN 13.1 g/dL (14.0-18.0); IG# 0.05 K/uL (0.00-0.02); LYMPH ABS # 1.46 K/uL (1.2-3.4); MEAN CELL VOLUME 86.6 fL (80-100); MEAN CORPUSCULAR HEMOGLOBIN 30.2 pg (25-34); MEAN CORPUSCULAR HGB CONC 34.8 g/dl (32-36); MEAN PLATELET VOLUME 9.9 fL (7.4-10.4); MONO % 7.4 %; MONO ABS # 1.19 K/uL (0.11-0.59); NEUT ABS # 13.42 K/uL (1.4-6.5); PLATELET COUNT 177 K/uL (130-400); RED CELL DISTRIBUTION WIDTH CV 12.4 % (11.5-14.5); RED CELL DISTRIBUTION WIDTH SD 39.7 fL (36.4-46.3); WHITE BLOOD COUNT 16.16 K/uL (4.8-10.8)
[2017-12-11 08:27] LABS: CALCIUM 8.2 mg/dl (8.5-10.1); CREATININE 1.29 mg/dl (0.60-1.40); POTASSIUM 4.5 mmol/L (3.5-5.1)
[2017-12-11 08:30] LABS: TOTAL PROTEIN 6.3 gm/dl (6.4-8.2)
--- NOTE | 2017-12-11 09:57 | Surgery Progress Note ---
Surgery Progress Note Date of Service Dec 11, 2017. Subjective Post OP Day: 1 (s/p laparoscopic appendectomy) + feeling well, + complaints (moderate abdominal pain, right lower abdomen and incision sites, controlled with oral narcotics), + ambulating, + pain controlled , + diet (full liquids), No chest pain, No SOB, No bowel movement, No flatus, No nausea, No vomiting Objective Vital Signs: Date Time Temp Pulse Resp B/P (MAP) Pulse Ox O2 Delivery O2 Flow Rate FiO2 12/11/17 07:35 Room Air 12/11/17 07:06 36.7 66 18 103/64 (77) 95 Room Air 12/11/17 03:28 37.0 66 18 134/81 (98) 96 Room Air 12/10/17 23:15 37.3 65 16 115/73 (87) 96 Room Air 12/10/17 20:00 37.5 70 18 118/72 (87) 96 Room Air 12/10/17 19:50 Room Air 12/10/17 15:18 37.6 88 16 131/69 (89) 97 Nasal Cannula 3.0 12/10/17 12:15 37.3 80 18 117/71 (86) 97 Nasal Cannula 2.0 12/10/17 11:15 80 16 107/63 (78) 96 12/10/17 10:15 87 16 106/71 (83) 96 Physical Exam: RAHAT drainage (purulent) General Appearance: WD/WN, no apparent distress Head: normocephalic, atraumatic Neck: trachea midline Respiratory/Chest: no respiratory distress, no accessory muscle use Abdomen: non distended, soft, no organomegaly, no pulsatile mass, + tenderness (RLQ and midline incision) Incision(s): clean, dry (dressing clean and dry, incisions not inspected POD # 1) Laboratory Results: Results Past 24 Hours Test 12/11/17 07:48 Range/Units White Blood Count 16.16 4.8-10.8 K/uL Red Blood Count 4.34 4.7-6.1 M/uL Hemoglobin 13.1 14.0-18.0 g/dL Hematocrit 37.6 42-52 % Mean Corpuscular Volume 86.6 80-100 fL Mean Corpuscular Hemoglobin 30.2 25-34 pg Mean Corpuscular Hemoglobin Concent 34.8 32-36 g/dl Platelet Count 177 130-400 K/uL Mean Platelet Volume 9.9 7.4-10.4 fL Neutrophils (%) (Auto) 83.0 % Lymphocytes (%) (Auto) 9.0 % Monocytes (%) (Auto) 7.4 % Eosinophils (%) (Auto) 0.2 % Basophils (%) (Auto) 0.1 % Neutrophils # (Auto) 13.42 1.4-6.5 K/uL Lymphocytes # (Auto) 1.46 1.2-3.4 K/uL Monocytes # (Auto) 1.19 0.11-0.59 K/uL Eosinophils # (Auto) 0.03 0-0.5 K/uL Basophils # (Auto) 0.01 0-0.2 K/uL RDW Standard Deviation 39.7 36.4-46.3 fL RDW Coefficient of Variation 12.4 11.5-14.5 % Immature Granulocyte % (Auto) 0.3 % Immature Granulocyte # (Auto) 0.05 0.00-0.02 K/uL Sodium Level 136 136-145 mmol/L Potassium Level 4.5 3.5-5.1 mmol/L Chloride Level 104 98-107 mmol/L Carbon Dioxide Level 30 21-32 mmol/L Anion Gap 2.0 3-11 mmol/L Blood Urea Nitrogen 12 7-18 mg/dl Creatinine 1.29 0.60-1.40 mg/dl Est Creatinine Clear Calc Drug Dose 91.1 ml/min Estimated GFR () 85.1 Estimated GFR (Non- 73.4 BUN/Creatinine Ratio 9.1 10-20 Random Glucose 101 70-99 mg/dl Calcium Level 8.2 8.5-10.1 mg/dl Total Bilirubin 2.0 0.2-1 mg/dl Aspartate Amino Transf (AST/SGOT) 13 15-37 U/L Alanine Aminotransferase (ALT/SGPT) 21 12-78 U/L Alkaline Phosphatase 52 45-117 U/L Total Protein 6.3 6.4-8.2 gm/dl Albumin 3.0 3.4-5.0 gm/dl Globulin 3.3 2.5-4.0 gm/dl Albumin/Globulin Ratio 0.9 0.9-2 Microbiology Results 12/10/17 Gram Stain - Final, Resulted 12/10/17 Wound Culture, Resulted Pending Assessment & Plan POD # 1 s/p laparoscopic appendectomy for perforated appendicitis - vitals stable, afebrile - leukocytosis with mild improvement 16K today 17K yesterday - rahat drain with purulent/serosanguineous output, culture results pending - abdominal pain moderate but controlled - no return of bowel function Plan: Continue current pain management as needed Continue IV fluids Continue IV Antibiotics, await culture results, await ID recs Continue full liquids encouraged OOB to chair and ambulation Continue IV Zofran as needed repeat am labs Continue SCDs Dr. Mcbride has seen and examined patient , agrees with above
--- NOTE | 2017-12-11 10:35 | Medical Consult ---
Consultation Date of Consultation: Dec 11, 2017. Attending Physician: Sumeet Michael D.O. Reason for Consultation: Perforated appendicitis History of Present Illness 31-year-old male in prior good health was admitted several days of right lower quadrant pain with than 1 day severe worsening, found to have acute appendicitis with perforation, and now has undergone laparoscopic appendectomy with drain placement. Has been started Zosyn empirically, feeling better 1 day postoperatively. Operative cultures are pending, Gram stain is negative for organisms. Tolerating his antibiotic without apparent difficulty. Had low- grade fever postop, currently afebrile. Pain currently 3/10 in intensity right lower quadrant. Past Medical/Surgical History Medical Problems: (1) Acute appendicitis Status: Acute (2) Right lower quadrant abdominal pain Status: Acute Medical Problems: (1) Atrial fibrillation Family History Patient reports no known family medical history. Social History Smoking Status: Never Smoker Smokeless Tobacco Use: No Alcohol Use: none Drug Use: none Marital Status: Housing Status: lives with significant other Occupation Status: employed Allergies Coded Allergies: No Known Allergies (Unverified , 12/09/17) Current Inpatient Medications Current Inpatient Medications Medications (Trade) Dose Ordered Sig/Cheko Route Start Time Stop Time Status Last Admin Dose Admin Ioversol (Optiray 320) 100 ml UD PRN IV 12/09/17 20:30 12/13/17 20:29 Acetaminophen (Tylenol Tab) 650 mg Q4H PRN PO 12/10/17 00:00 01/09/18 00:00 Al Hydrox/Mg Hydrox/Simethicone (Maalox Max Susp) 15 ml Q4H PRN PO 12/10/17 00:00 01/09/18 00:00 Magnesium Hydroxide (Milk Of Magnesia Susp) 30 ml Q6H PRN PO 12/10/17 00:00 01/09/18 00:00 Polyethylene (Miralax Powder Packet) 17 gm DAILY PRN PO 12/10/17 00:00 01/09/18 00:00 Ondansetron HCl (Zofran Inj) 4 mg Q6H PRN IV 12/10/17 00:00 01/09/18 00:00 12/10/17 04:27 4 MG Morphine Sulfate (MoRPHine SULFATE INJ) 4 mg Q4H PRN IV 12/10/17 00:00 5/7/18 00:00 12/10/17 15:30 4 MG Miscellaneous Information (Consult) 1 ea UD PRN N/A 12/10/17 00:00 01/09/18 00:00 Sodium Chloride 1,000 ml @ 100 mls/hr Q10H IV 12/10/17 02:00 01/09/18 01:59 12/11/17 07:34 100 MLS/HR Piperacillin Sod/ Tazobactam Sod 3.375 gm/Sodium Chloride 115 ml @ 28.75 mls/ hr Q8H IV 12/10/17 04:00 12/20/17 03:59 12/11/17 03:19 28.75 MLS/HR Oxycodone/ Acetaminophen (Percocet 5-325mg Tab) 1 tab Q4H PRN PO 12/10/17 16:45 12/24/17 16:44 12/11/17 07:33 1 TAB Oxycodone/ Acetaminophen (Percocet 5-325mg Tab) 2 tab Q4H PRN PO 12/11/17 10:00 12/25/17 09:59 UNV Review of Systems Constitutional: No fever Eyes: No problem reported ENT: No problem reported Respiratory: No problem reported Cardiovascular: No problem reported Abdomen: + pain, + vomiting Musculoskeletal: No problem reported Genitourinary - Male: No problem reported Neurologic: No problem reported Psychiatric: No problem reported Endocrine: No problem reported Hematologic / Lymphatic: No problem reported Integumentary: No problem reported Allergic / Immunologic: No problem reported Physical Exam Date Time Temp Pulse Resp B/P (MAP) Pulse Ox O2 Delivery O2 Flow Rate FiO2 12/11/17 07:35 Room Air 12/11/17 07:06 36.7 66 18 103/64 (77) 95 Room Air 12/11/17 03:28 37.0 66 18 134/81 (98) 96 Room Air 12/10/17 23:15 37.3 65 16 115/73 (87) 96 Room Air 12/10/17 20:00 37.5 70 18 118/72 (87) 96 Room Air 12/10/17 19:50 Room Air 12/10/17 15:18 37.6 88 16 131/69 (89) 97 Nasal Cannula 3.0 12/10/17 12:15 37.3 80 18 117/71 (86) 97 Nasal Cannula 2.0 12/10/17 11:15 80 16 107/63 (78) 96 General Appearance: WD/WN, no apparent distress Head: normocephalic, atraumatic Eyes: normal inspection, EOMI, sclerae normal ENT: normal ENT inspection, hearing grossly normal, pharynx normal Neck: supple, no adenopathy, thyroid normal, trachea midline Respiratory/Chest: chest non-tender, lungs clear, normal breath sounds, no respiratory distress Cardiovascular: regular rate, rhythm, no gallop, no murmur Abdomen/GI: soft, no organomegaly, + tenderness (RIGHT LOWER QUADRANT), + abnormal bowel sounds (DIMINISHED), + pertinent finding (Drain in place right lower quadrant draining murky fluid) Back: normal inspection, no CVA tenderness Extremities/Musculoskelatal: no calf tenderness, normal capillary refill Neurologic/Psych: alert, normal mood/affect, oriented x 3 Skin: normal color, warm/dry, no rash Lymphatic: no adenopathy Laboratory Results Date/Time Source Procedure Growth Status 12/10/17 16:32 Drainage - Surface Abdomen, Right Lower Quadrant Gram Stain - Final Resulted 12/10/17 16:32 Drainage - Surface Abdomen, Right Lower Quadrant Wound Culture Pending Resulted Last 24 Hours Test 12/11/17 07:48 White Blood Count 16.16 K/uL Red Blood Count 4.34 M/uL Hemoglobin 13.1 g/dL Hematocrit 37.6 % Mean Corpuscular Volume 86.6 fL Mean Corpuscular Hemoglobin 30.2 pg Mean Corpuscular Hemoglobin Concent 34.8 g/dl Platelet Count 177 K/uL Mean Platelet Volume 9.9 fL Neutrophils (%) (Auto) 83.0 % Lymphocytes (%) (Auto) 9.0 % Monocytes (%) (Auto) 7.4 % Eosinophils (%) (Auto) 0.2 % Basophils (%) (Auto) 0.1 % Neutrophils # (Auto) 13.42 K/uL Lymphocytes # (Auto) 1.46 K/uL Monocytes # (Auto) 1.19 K/uL Eosinophils # (Auto) 0.03 K/uL Basophils # (Auto) 0.01 K/uL RDW Standard Deviation 39.7 fL RDW Coefficient of Variation 12.4 % Immature Granulocyte % (Auto) 0.3 % Immature Granulocyte # (Auto) 0.05 K/uL Sodium Level 136 mmol/L Potassium Level 4.5 mmol/L Chloride Level 104 mmol/L Carbon Dioxide Level 30 mmol/L Anion Gap 2.0 mmol/L Blood Urea Nitrogen 12 mg/dl Creatinine 1.29 mg/dl Est Creatinine Clear Calc Drug Dose 91.1 ml/min Estimated GFR () 85.1 Estimated GFR (Non- 73.4 BUN/Creatinine Ratio 9.1 Random Glucose 101 mg/dl Calcium Level 8.2 mg/dl Total Bilirubin 2.0 mg/dl Aspartate Amino Transf (AST/SGOT) 13 U/L Alanine Aminotransferase (ALT/SGPT) 21 U/L Alkaline Phosphatase 52 U/L Total Protein 6.3 gm/dl Albumin 3.0 gm/dl Globulin 3.3 gm/dl Albumin/Globulin Ratio 0.9 Patient Name: ALEJANDRA KENYON Unit Number: [id number] Dictated: 12/09/172155 Transcribed: 12/09/172155 MS Printed Date/Time: [~ rep prt dt]/[~ rep prt tm] [~ rep ct labl] - [~ rep ct ivnm] [facility] Radiology Department [place], [place] [id number] Dictated: 12/09/172155 Transcribed: 12/09/172155 MS Printed Date/Time: [~ rep prt dt]/[~ rep prt tm] [~ rep ct labl] - [~ rep ct ivnm] [~ rep ct add3]] ABD/PELVIS IV CONTRAST ONLY CT DOSE: 353.75 mGy.cm HISTORY: Flank pain RLQ pain TECHNIQUE: Multiaxial CT images of the abdomen and pelvis were performed following the use of intravenous contrast. A dose lowering technique was utilized adhering to the principles of ALARA. COMPARISON STUDY: None. FINDINGS: Lung bases are clear. Liver spleen and pancreas enhance uniformly. Kidneys are negative for hydronephrosis. The upper abdominal bowel pattern is nonobstructive. The right flank demonstrates a distended appendix with associated appendicolith. Maximum diameters 1.5 cm. There is moderate surrounding periappendiceal infiltrative change with a trace amount of reactive fluid. There is air-containing elements throughout in this region appear to be bowel related to rather than extraluminal air. Well-defined drainable abscess or collection is not appreciated. There is a small amount of free fluid within the pelvic cul-de-sac. There are findings of scattered colonic diverticuli. There is no evidence for diverticulitis. IMPRESSION: 1. Acute appendicitis. 2. The appendix is distended to 1.5 cm with a contained appendicolith. 3. Moderate amount of periappendiceal infiltrative change combined with a small amount of surrounding reactive fluid. 4. No evidence for drainable abscess or collection at the current time. The above report was generated using voice recognition software. It may contain grammatical, syntax or spelling errors. Electronically signed by: Chi Wadsworth M.D. 12/09/2017 9:59 PM Dictated Date/Time: 12/09/2017 9:56 PM The status of this report is Signed. Draft = Not yet reviewed or approved by Radiologist. Signed = Reviewed and approved by Radiologist. <AttendingPhy></AttendingPhy> <FamilyPhy>No Doctor, Assigned</FamilyPhy> < PrimaryPhy>No Doctor, Assigned</PrimaryPhy> <UnitNumber>[id number]</UnitNumber> <VisitNumber>[id number]</VisitNumber> <PatientName>ALEJANDRA KENYON</ PatientName> <DateOfBirth>1985</DateOfBirth> <Location>[facility]</Location> < ServiceDate>12/09/17</ServiceDate> <MNE>ESINDI</MNE> <OrderingPhy>Mckinley Brandon D.O.</OrderingPhy> <OrderingPhyMNE>f rep ord dr stone</OrderingPhyMNE> <DictatingPhyMNE>f rep dict dr stone</DictatingPhyMNE> <CCListMNE>f rep ct prernae</ CCListMNE> <AdmittingPhyMNE>f pt admit dr stone</AdmittingPhyMNE> <AttendingPhyMNE >f pt attend dr stone</AttendingPhyMNE> <ConsultingPhyMNE>f pt consult dr stone</ConsultingPhyMNE> <FamilyPhyMNE>f pt fam dr stone</FamilyPhyMNE> <OtherPhyMNE>f pt other dr stone</OtherPhyMNE> < PrimaryPhyMNE>f pt prim care dr stone</PrimaryPhyMNE> <ReferringPhyMNE>f pt referring dr stone</ReferringPhyMNE> Assessment & Plan 31-year-old healthy male with perforated appendicitis now status post appendectomy and drain placement. Zosyn should provide adequate coverage pending operative cultures, suspect patient will require at least few days of outpatient IV antibiotics, but will await final culture results for further direction regarding choice of therapy. Will follow.
--- NOTE | 2017-12-11 13:11 | Family Medicine Progress Note ---
Progress Note Date of Service Dec 11, 2017. Subjective Pt evaluation today including: conversation w/ patient, physical exam, chart review, lab review Pain: 5/10 abdominal pain PO Intake: tolerating full liquid diet Voiding: no voiding problems This AM pt reported 5/10 abdominal pain controlled with pain meds. Denied any n/ v, sob, cp. has not passed flatus or had a BM yet. Constitutional: No fever Respiratory: No shortness of breath Cardiovascular: No chest pain Abdomen: + pain, No nausea, No vomiting Male : No dysuria Medications Current Inpatient Medications Medications (Trade) Dose Ordered Sig/Cheko Route Start Time Stop Time Status Last Admin Dose Admin Ioversol (Optiray 320) 100 ml UD PRN IV 12/09/17 20:30 12/13/17 20:29 Acetaminophen (Tylenol Tab) 650 mg Q4H PRN PO 12/10/17 00:00 01/09/18 00:00 Al Hydrox/Mg Hydrox/Simethicone (Maalox Max Susp) 15 ml Q4H PRN PO 12/10/17 00:00 01/09/18 00:00 Magnesium Hydroxide (Milk Of Magnesia Susp) 30 ml Q6H PRN PO 12/10/17 00:00 01/09/18 00:00 Polyethylene (Miralax Powder Packet) 17 gm DAILY PRN PO 12/10/17 00:00 01/09/18 00:00 Ondansetron HCl (Zofran Inj) 4 mg Q6H PRN IV 12/10/17 00:00 01/09/18 00:00 12/10/17 04:27 4 MG Morphine Sulfate (MoRPHine SULFATE INJ) 4 mg Q4H PRN IV 12/10/17 00:00 12/24/17 00:00 12/10/17 15:30 4 MG Miscellaneous Information (Consult) 1 ea UD PRN N/A 12/10/17 00:00 01/09/18 00:00 Sodium Chloride 1,000 ml @ 100 mls/hr Q10H IV 12/10/17 02:00 01/09/18 01:59 12/11/17 07:34 100 MLS/HR Piperacillin Sod/ Tazobactam Sod 3.375 gm/Sodium Chloride 115 ml @ 28.75 mls/ hr Q8H IV 12/10/17 04:00 12/20/17 03:59 12/11/17 12:51 28.75 MLS/HR Oxycodone/ Acetaminophen (Percocet 5-325mg Tab) 1 tab Q4H PRN PO 12/10/17 16:45 12/24/17 16:44 12/11/17 07:33 1 TAB Oxycodone/ Acetaminophen (Percocet 5-325mg Tab) 2 tab Q4H PRN PO 12/11/17 10:00 12/25/17 09:59 12/11/17 16:40 2 TAB Objective Vital Signs Date Time Temp Pulse Resp B/P (MAP) Pulse Ox O2 Delivery O2 Flow Rate FiO2 12/11/17 15:06 36.7 95 16 113/71 (85) 95 Room Air 12/11/17 07:35 Room Air 12/11/17 07:06 36.7 66 18 103/64 (77) 95 Room Air 12/11/17 03:28 37.0 66 18 134/81 (98) 96 Room Air 12/10/17 23:15 37.3 65 16 115/73 (87) 96 Room Air 12/10/17 20:00 37.5 70 18 118/72 (87) 96 Room Air 12/10/17 19:50 Room Air Physical Exam General Appearance: no apparent distress Eyes: normal inspection Neck: supple Respiratory/Chest: lungs clear, normal breath sounds Cardiovascular: regular rate, rhythm, no murmur Abdomen: normal bowel sounds, soft, + tenderness (RLQ and epigastric), + pertinent finding (surgical dressing C/D/I) Extremities: non-tender, no pedal edema Neurologic/Psychiatric: alert, oriented x 3 Laboratory Results 12/11/17 07:48 Red Blood Count 4.34, Mean Corpuscular Volume 86.6, Mean Corpuscular Hemoglobin 30.2, Mean Corpuscular Hemoglobin Concent 34.8, Mean Platelet Volume 9.9, Neutrophils (%) (Auto) 83.0, Lymphocytes (%) (Auto) 9.0, Monocytes (%) (Auto) 7.4, Eosinophils (%) (Auto) 0.2, Basophils (%) (Auto) 0.1, Neutrophils # (Auto) 13.42, Lymphocytes # (Auto) 1.46, Monocytes # (Auto) 1.19, Eosinophils # (Auto) 0.03, Basophils # (Auto) 0.01 12/11/17 07:48 Test 12/11/17 07:48 White Blood Count 16.16 K/uL (4.8-10.8) Red Blood Count 4.34 M/uL (4.7-6.1) Hemoglobin 13.1 g/dL (14.0-18.0) Hematocrit 37.6 % (42-52) Mean Corpuscular Volume 86.6 fL (80-100) Mean Corpuscular Hemoglobin 30.2 pg (25-34) Mean Corpuscular Hemoglobin Concent 34.8 g/dl (32-36) Platelet Count 177 K/uL (130-400) Mean Platelet Volume 9.9 fL (7.4-10.4) Neutrophils (%) (Auto) 83.0 % Lymphocytes (%) (Auto) 9.0 % Monocytes (%) (Auto) 7.4 % Eosinophils (%) (Auto) 0.2 % Basophils (%) (Auto) 0.1 % Neutrophils # (Auto) 13.42 K/uL (1.4-6.5) Lymphocytes # (Auto) 1.46 K/uL (1.2-3.4) Monocytes # (Auto) 1.19 K/uL (0.11-0.59) Eosinophils # (Auto) 0.03 K/uL (0-0.5) Basophils # (Auto) 0.01 K/uL (0-0.2) RDW Standard Deviation 39.7 fL (36.4-46.3) RDW Coefficient of Variation 12.4 % (11.5-14.5) Immature Granulocyte % (Auto) 0.3 % Immature Granulocyte # (Auto) 0.05 K/uL (0.00-0.02) Anion Gap 2.0 mmol/L (3-11) Est Creatinine Clear Calc Drug Dose 91.1 ml/min Estimated GFR () 85.1 Estimated GFR (Non- 73.4 BUN/Creatinine Ratio 9.1 (10-20) Calcium Level 8.2 mg/dl (8.5-10.1) Total Bilirubin 2.0 mg/dl (0.2-1) Aspartate Amino Transf (AST/SGOT) 13 U/L (15-37) Alanine Aminotransferase (ALT/SGPT) 21 U/L (12-78) Alkaline Phosphatase 52 U/L (45-117) Total Protein 6.3 gm/dl (6.4-8.2) Albumin 3.0 gm/dl (3.4-5.0) Globulin 3.3 gm/dl (2.5-4.0) Albumin/Globulin Ratio 0.9 (0.9-2) Assessment and Plan 31 yo M with hx of paroxysmal Afib admitted for Appendicitis with peritonitis 2/ 2 perforation. S/p appendectomy day 1 with stable pain. No flatus/BM yet. Tolerating full liquid diet. Remains on IVF and Abx per surgery. Acute Appendicitis - RLQ pain, afebrile, +leukocytosis (improved from 17.8 to 16.2 this AM) - previous history of medically managed suspected appendicitis 4 yrs prior - CT abdomen: appendicitis. distended appendix with appendicolith - Continue IV NS 100 mls/hr - Continue IV Zosyn 4.5 q8 per ID - Tylenol, Percocet and Morphine for pain as needed - Zofran PRN for nausea - General Surgery consulted - s/p appendectomy day 1 - Continue IVF, Abx pending culture results and ID recommendations; full liquid diet; OOB to chair and ambulate -ID consulted: continue zosyn IV; pending wound culture results may need 1-2 days of ertapenem at home via peripheral IV or if longer duration require PICC - Abdominal culture - NGTD Paroxysmal Afib - currently with RRR - has never been treated for rate control or anticoagulation DVTP: SCD's only Code: Full Diet: full liquid diet Resident Physician Supervision Note: I was present with Dr. Espinal during the history and exam. I discussed the case with the resident and agree with the findings and plan as documented in the note. Remains afebrile, hemodynamically stable. Pain controlled with PO pain medication. Continues to improve; monitor VS and CBC. Will discuss duration of antibiotics with ID once cultures are finalized. Documented By: Sumeet Michael Resident Involvement: Resident Care Provided Care Provided: Adult Hospital Medicine
[2017-12-11 15:06] VITALS: BP 113/71; PULSE 95; TEMP 36.7; O2SAT 95
[2017-12-11] MEDS: ALUMINUM/MAGNESIUM/SIMETH (MAALOX MAX) 30 ML UDC PO PRN (20:20)
[2017-12-11 21:13] VITALS: TEMP 36.7
[2017-12-11 22:45] VITALS: BP 115/70; PULSE 88; TEMP 37.4; O2SAT 92
[2017-12-12] VITALS (8 sets, daily range): BP systolic 120–134; BP diastolic 70–76; PULSE 97–114; TEMP 36.5–38.1; O2SAT 85–94
[2017-12-12] MEDS: OXYCODONE/ACETAMINOPHEN 5-325 TAB PO PRN ×4 (00:18→22:33)
[2017-12-12] MEDS: SODIUM CHLORIDE 0.9% 1000ML 1,000 ML IV SCH ×3 (03:52→23:22)
[2017-12-12] MEDS: PIPERACILL/TAZOBAC IV 3.375 GM in NSS 100ML IV SCH ×3 (03:52→20:33)
[2017-12-12 08:04] LABS: BASO % 0.1 %; BASO ABS # 0.01 K/uL (0-0.2); EOS % 0.1 %; EOS ABS # 0.01 K/uL (0-0.5); HEMATOCRIT 36.2 % (42-52); HEMOGLOBIN 12.4 g/dL (14.0-18.0); IG# 0.03 K/uL (0.00-0.02); LYMPH ABS # 0.61 K/uL (1.2-3.4); MEAN CELL VOLUME 86.6 fL (80-100); MEAN CORPUSCULAR HEMOGLOBIN 29.7 pg (25-34); MEAN CORPUSCULAR HGB CONC 34.3 g/dl (32-36); MEAN PLATELET VOLUME 9.8 fL (7.4-10.4); MONO % 7.4 %; MONO ABS # 0.91 K/uL (0.11-0.59); NEUT % 87.2 %; NEUT ABS # 10.75 K/uL (1.4-6.5); PLATELET COUNT 162 K/uL (130-400); RED CELL DISTRIBUTION WIDTH CV 12.5 % (11.5-14.5); RED CELL DISTRIBUTION WIDTH SD 39.6 fL (36.4-46.3); WHITE BLOOD COUNT 12.32 K/uL (4.8-10.8)
[2017-12-12 08:37] LABS: ALBUMIN 2.4 gm/dl (3.4-5.0); CALCIUM 7.7 mg/dl (8.5-10.1); CREATININE 1.19 mg/dl (0.60-1.40); POTASSIUM 3.8 mmol/L (3.5-5.1); TOTAL PROTEIN 5.7 gm/dl (6.4-8.2)
--- NOTE | 2017-12-12 08:59 | Family Medicine Progress Note ---
Progress Note Date of Service Dec 12, 2017. Subjective Pt evaluation today including: conversation w/ patient, physical exam, chart review, lab review Pain: 5-6/10 when moves PO Intake: tolerating clear liquid diet Voiding: no voiding problems This am reports 5-6/10 pain when moves none at rest. No n/v. Still not passed flatus or had BM. O/w asymptomatic Constitutional: No fever Respiratory: No shortness of breath Cardiovascular: No chest pain Abdomen: + pain, No nausea, No vomiting Male : No dysuria Medications Current Inpatient Medications Medications (Trade) Dose Ordered Sig/Cheko Route Start Time Stop Time Status Last Admin Dose Admin Ioversol (Optiray 320) 100 ml UD PRN IV 12/09/17 20:30 12/13/17 20:29 Acetaminophen (Tylenol Tab) 650 mg Q4H PRN PO 12/10/17 00:00 01/09/18 00:00 Al Hydrox/Mg Hydrox/Simethicone (Maalox Max Susp) 15 ml Q4H PRN PO 12/10/17 00:00 01/09/18 00:00 12/11/17 20:20 15 ML Magnesium Hydroxide (Milk Of Magnesia Susp) 30 ml Q6H PRN PO 12/10/17 00:00 01/09/18 00:00 Polyethylene (Miralax Powder Packet) 17 gm DAILY PRN PO 12/10/17 00:00 01/09/18 00:00 Ondansetron HCl (Zofran Inj) 4 mg Q6H PRN IV 12/10/17 00:00 01/09/18 00:00 12/10/17 04:27 4 MG Morphine Sulfate (MoRPHine SULFATE INJ) 4 mg Q4H PRN IV 12/10/17 00:00 12/24/17 00:00 12/10/17 15:30 4 MG Miscellaneous Information (Consult) 1 ea UD PRN N/A 12/10/17 00:00 01/09/18 00:00 Sodium Chloride 1,000 ml @ 100 mls/hr Q10H IV 12/10/17 02:00 01/09/18 01:59 12/12/17 03:52 100 MLS/HR Piperacillin Sod/ Tazobactam Sod 3.375 gm/Sodium Chloride 115 ml @ 28.75 mls/ hr Q8H IV 12/10/17 04:00 12/20/17 03:59 12/12/17 03:52 28.75 MLS/HR Oxycodone/ Acetaminophen (Percocet 5-325mg Tab) 1 tab Q4H PRN PO 12/10/17 16:45 12/24/17 16:44 12/12/17 04:08 1 TAB Oxycodone/ Acetaminophen (Percocet 5-325mg Tab) 2 tab Q4H PRN PO 12/11/17 10:00 12/25/17 09:59 12/12/17 00:18 2 TAB Diphenhydramine HCl (Benadryl Cap) 50 mg Q6 PRN PO 12/11/17 21:15 01/10/18 21:14 12/11/17 21:21 50 MG Objective Vital Signs Date Time Temp Pulse Resp B/P (MAP) Pulse Ox O2 Delivery O2 Flow Rate FiO2 12/12/17 07:45 36.8 22 94 Nasal Cannula 2.0 12/12/17 07:41 37.9 110 22 134/73 (93) 85 Room Air 12/11/17 23:08 Room Air 12/11/17 22:45 37.4 88 16 115/70 (85) 92 Room Air 12/11/17 21:13 36.7 12/11/17 15:39 Room Air 12/11/17 15:06 36.7 95 16 113/71 (85) 95 Room Air Physical Exam General Appearance: no apparent distress Eyes: normal inspection Neck: supple Respiratory/Chest: lungs clear, normal breath sounds Cardiovascular: regular rate, rhythm, no murmur Abdomen: soft, + abnormal bowel sounds (hypoactive), + tenderness (RLQ and mild RUQ/epigastric), + pertinent finding (JANUSZ drain some yellowish discharge) Extremities: non-tender, no pedal edema Neurologic/Psychiatric: alert, oriented x 3 Skin: warm/dry Laboratory Results 12/12/17 07:29 Red Blood Count 4.18, Mean Corpuscular Volume 86.6, Mean Corpuscular Hemoglobin 29.7, Mean Corpuscular Hemoglobin Concent 34.3, Mean Platelet Volume 9.8, Neutrophils (%) (Auto) 87.2, Lymphocytes (%) (Auto) 5.0, Monocytes (%) (Auto) 7.4, Eosinophils (%) (Auto) 0.1, Basophils (%) (Auto) 0.1, Neutrophils # (Auto) 10.75, Lymphocytes # (Auto) 0.61, Monocytes # (Auto) 0.91, Eosinophils # (Auto) 0.01, Basophils # (Auto) 0.01 12/12/17 07:29 Test 12/12/17 07:29 White Blood Count 12.32 K/uL (4.8-10.8) Red Blood Count 4.18 M/uL (4.7-6.1) Hemoglobin 12.4 g/dL (14.0-18.0) Hematocrit 36.2 % (42-52) Mean Corpuscular Volume 86.6 fL (80-100) Mean Corpuscular Hemoglobin 29.7 pg (25-34) Mean Corpuscular Hemoglobin Concent 34.3 g/dl (32-36) Platelet Count 162 K/uL (130-400) Mean Platelet Volume 9.8 fL (7.4-10.4) Neutrophils (%) (Auto) 87.2 % Lymphocytes (%) (Auto) 5.0 % Monocytes (%) (Auto) 7.4 % Eosinophils (%) (Auto) 0.1 % Basophils (%) (Auto) 0.1 % Neutrophils # (Auto) 10.75 K/uL (1.4-6.5) Lymphocytes # (Auto) 0.61 K/uL (1.2-3.4) Monocytes # (Auto) 0.91 K/uL (0.11-0.59) Eosinophils # (Auto) 0.01 K/uL (0-0.5) Basophils # (Auto) 0.01 K/uL (0-0.2) RDW Standard Deviation 39.6 fL (36.4-46.3) RDW Coefficient of Variation 12.5 % (11.5-14.5) Immature Granulocyte % (Auto) 0.2 % Immature Granulocyte # (Auto) 0.03 K/uL (0.00-0.02) Anion Gap 4.0 mmol/L (3-11) Est Creatinine Clear Calc Drug Dose 97.8 ml/min Estimated GFR () 93.1 Estimated GFR (Non- 80.3 BUN/Creatinine Ratio 6.2 (10-20) Calcium Level 7.7 mg/dl (8.5-10.1) Total Bilirubin 1.8 mg/dl (0.2-1) Aspartate Amino Transf (AST/SGOT) 30 U/L (15-37) Alanine Aminotransferase (ALT/SGPT) 43 U/L (12-78) Alkaline Phosphatase 62 U/L (45-117) Total Protein 5.7 gm/dl (6.4-8.2) Albumin 2.4 gm/dl (3.4-5.0) Globulin 3.3 gm/dl (2.5-4.0) Albumin/Globulin Ratio 0.7 (0.9-2) Assessment and Plan 31 yo M with hx of paroxysmal Afib admitted for Appendicitis with peritonitis 2/ 2 perforation. S/p appendectomy day 2 with stable pain. No flatus/BM yet. Tolerating clear liquid diet. Remains on IVF and Abx per surgery. Acute Appendicitis - RLQ pain, afebrile, +leukocytosis (improved from 16.2 to 12.3 this AM) - previous history of medically managed suspected appendicitis 4 yrs prior - CT abdomen: appendicitis. distended appendix with appendicolith - Continue IV NS 100 mls/hr - Continue IV Zosyn 4.5 q8 per ID - Tylenol, Percocet and Morphine for pain as needed - Zofran PRN for nausea - General Surgery consulted - s/p appendectomy day 2 - Continue IVF, Abx pending culture results and ID recommendations; full liquid diet; OOB to chair and ambulate -ID consulted: continue zosyn IV; pending wound culture results may need 1-2 days of ertapenem at home via peripheral IV or if longer duration require PICC - Abdominal culture - prelim NGTD Paroxysmal Afib - currently with RRR - has never been treated for rate control or anticoagulation DVTP: SCD's only Code: Full Diet: clear liquid diet Resident Physician Supervision Note: I was present with Dr. Espinal during the history and exam. I discussed the case with the resident and agree with the findings and plan as documented in the note. Pain is improved; patient ambulating in the hallway on room air. Denies shortness of breath at present, although had an episode of decreased saturations this morning (suspect respiratory splinting). Documented By: Sumeet Michael Resident Involvement: Resident Care Provided Care Provided: Adult Hospital Medicine
[2017-12-12] MEDS: MoRPHine SULFATE 4 MG/ML 1 ML CARP\\VIAL IV PRN (09:08)
[2017-12-12] MEDS: ALUMINUM/MAGNESIUM/SIMETH (MAALOX MAX) 30 ML UDC PO PRN (09:08)
[2017-12-12] MEDS ORDERED: BISACODYL 5 MG TABEC PO ONE (10:45)
[2017-12-12] MEDS ORDERED: BISACODYL 10 MG SUPP PR STA (11:16)
--- NOTE | 2017-12-12 11:21 | Surgery Progress Note ---
Surgery Progress Note Date of Service Dec 12, 2017. Subjective Post OP Day: 2 + feeling well, + pain controlled pt is doing better, not pass gas or BM yet, some nausea, no vomiting, the peritoneal fluid culture report is reviewed with pt , WBC down to 12,000. Objective Vital Signs: Date Time Temp Pulse Resp B/P (MAP) Pulse Ox O2 Delivery O2 Flow Rate FiO2 12/12/17 08:00 Room Air 12/12/17 07:45 36.8 22 94 Nasal Cannula 2.0 12/12/17 07:41 37.9 110 22 134/73 (93) 85 Room Air 12/11/17 23:08 Room Air 12/11/17 22:45 37.4 88 16 115/70 (85) 92 Room Air 12/11/17 21:13 36.7 12/11/17 15:39 Room Air 12/11/17 15:06 36.7 95 16 113/71 (85) 95 Room Air General Appearance: WD/WN, no apparent distress Head: normocephalic Neck: supple, no JVD Respiratory/Chest: chest non-tender, lungs clear Cardiovascular: regular rate, rhythm, no edema, no gallop Abdomen: normal bowel sounds, non distended, soft, no organomegaly, + tenderness Incision(s): clean, dry, intact Extremities: normal range of motion, non-tender, normal inspection Laboratory Results: Results Past 24 Hours Test 12/12/17 07:29 Range/Units White Blood Count 12.32 4.8-10.8 K/uL Red Blood Count 4.18 4.7-6.1 M/uL Hemoglobin 12.4 14.0-18.0 g/dL Hematocrit 36.2 42-52 % Mean Corpuscular Volume 86.6 80-100 fL Mean Corpuscular Hemoglobin 29.7 25-34 pg Mean Corpuscular Hemoglobin Concent 34.3 32-36 g/dl Platelet Count 162 130-400 K/uL Mean Platelet Volume 9.8 7.4-10.4 fL Neutrophils (%) (Auto) 87.2 % Lymphocytes (%) (Auto) 5.0 % Monocytes (%) (Auto) 7.4 % Eosinophils (%) (Auto) 0.1 % Basophils (%) (Auto) 0.1 % Neutrophils # (Auto) 10.75 1.4-6.5 K/uL Lymphocytes # (Auto) 0.61 1.2-3.4 K/uL Monocytes # (Auto) 0.91 0.11-0.59 K/uL Eosinophils # (Auto) 0.01 0-0.5 K/uL Basophils # (Auto) 0.01 0-0.2 K/uL RDW Standard Deviation 39.6 36.4-46.3 fL RDW Coefficient of Variation 12.5 11.5-14.5 % Immature Granulocyte % (Auto) 0.2 % Immature Granulocyte # (Auto) 0.03 0.00-0.02 K/uL Sodium Level 135 136-145 mmol/L Potassium Level 3.8 3.5-5.1 mmol/L Chloride Level 103 98-107 mmol/L Carbon Dioxide Level 28 21-32 mmol/L Anion Gap 4.0 3-11 mmol/L Blood Urea Nitrogen 7 7-18 mg/dl Creatinine 1.19 0.60-1.40 mg/dl Est Creatinine Clear Calc Drug Dose 97.8 ml/min Estimated GFR () 93.1 Estimated GFR (Non- 80.3 BUN/Creatinine Ratio 6.2 10-20 Random Glucose 95 70-99 mg/dl Calcium Level 7.7 8.5-10.1 mg/dl Total Bilirubin 1.8 0.2-1 mg/dl Aspartate Amino Transf (AST/SGOT) 30 15-37 U/L Alanine Aminotransferase (ALT/SGPT) 43 12-78 U/L Alkaline Phosphatase 62 45-117 U/L Total Protein 5.7 6.4-8.2 gm/dl Albumin 2.4 3.4-5.0 gm/dl Globulin 3.3 2.5-4.0 gm/dl Albumin/Globulin Ratio 0.7 0.9-2 Assessment & Plan full liquid diet, OOB repeat labs in am, ID consult will F/U 12/12/17 doing better, WBC down dulcolax 10 mg po x1 . 10 mg dulcolax IN full liquid diet, OOB repeat labs in am, will F/U full liquid diet, OOB repeat labs in am, ID consult will F/U
[2017-12-12] MEDS: METOCLOPRAMIDE HCL INJ 5 MG/ML 2 ML VIAL IV. SCH ×2 (13:29→20:33)
--- NOTE | 2017-12-12 17:33 | Infectious Disease Progress Nt ---
Progress Note Date of Service Dec 12, 2017. Subjective Pt evaluation today including: conversation w/ patient, conversation w/ family , physical exam, chart review, lab review, review of studies, conversation w/ travel sales consultant, review of inpatient medication list Continues to improve slowly. Remains afebrile. Cultures with gram-negative since strep. Tolerating Zosyn without apparent difficulty. All Other Systems: Reviewed and Negative Medications Current Inpatient Medications Medications (Trade) Dose Ordered Sig/Cheko Route Start Time Stop Time Status Last Admin Dose Admin Ioversol (Optiray 320) 100 ml UD PRN IV 12/09/17 20:30 12/13/17 20:29 Acetaminophen (Tylenol Tab) 650 mg Q4H PRN PO 12/10/17 00:00 01/09/18 00:00 Al Hydrox/Mg Hydrox/Simethicone (Maalox Max Susp) 15 ml Q4H PRN PO 12/10/17 00:00 01/09/18 00:00 12/12/17 09:08 15 ML Magnesium Hydroxide (Milk Of Magnesia Susp) 30 ml Q6H PRN PO 12/10/17 00:00 01/09/18 00:00 Polyethylene (Miralax Powder Packet) 17 gm DAILY PRN PO 12/10/17 00:00 01/09/18 00:00 Ondansetron HCl (Zofran Inj) 4 mg Q6H PRN IV 12/10/17 00:00 01/09/18 00:00 12/10/17 04:27 4 MG Morphine Sulfate (MoRPHine SULFATE INJ) 4 mg Q4H PRN IV 12/10/17 00:00 12/24/17 00:00 12/12/17 09:08 4 MG Miscellaneous Information (Consult) 1 ea UD PRN N/A 12/10/17 00:00 01/09/18 00:00 Sodium Chloride 1,000 ml @ 100 mls/hr Q10H IV 12/10/17 02:00 01/09/18 01:59 12/12/17 13:30 100 MLS/HR Piperacillin Sod/ Tazobactam Sod 3.375 gm/Sodium Chloride 115 ml @ 28.75 mls/ hr Q8H IV 12/10/17 04:00 12/20/17 03:59 12/12/17 12:19 28.75 MLS/HR Oxycodone/ Acetaminophen (Percocet 5-325mg Tab) 1 tab Q4H PRN PO 12/10/17 16:45 12/24/17 16:44 12/12/17 04:08 1 TAB Oxycodone/ Acetaminophen (Percocet 5-325mg Tab) 2 tab Q4H PRN PO 12/11/17 10:00 12/25/17 09:59 12/12/17 15:12 2 TAB Diphenhydramine HCl (Benadryl Cap) 50 mg Q6 PRN PO 12/11/17 21:15 01/10/18 21:14 12/11/17 21:21 50 MG Metoclopramide HCl (Reglan Inj) 10 mg Q8 IV. 12/12/17 14:00 01/11/18 13:59 12/12/17 13:29 10 MG Objective Vital Signs Date Time Temp Pulse Resp B/P (MAP) Pulse Ox O2 Delivery O2 Flow Rate FiO2 12/12/17 16:53 36.8 12/12/17 16:40 Room Air 12/12/17 15:02 37.7 114 20 132/76 (94) 92 Room Air 12/12/17 11:36 37.4 109 22 127/70 (89) 94 Room Air 12/12/17 08:00 Room Air 12/12/17 07:45 36.8 22 94 Nasal Cannula 2.0 12/12/17 07:41 37.9 110 22 134/73 (93) 85 Room Air 12/11/17 23:08 Room Air 12/11/17 22:45 37.4 88 16 115/70 (85) 92 Room Air 12/11/17 21:13 36.7 Physical Exam General Appearance: WD/WN, no apparent distress Eyes: normal inspection, EOMI, sclerae normal ENT: normal ENT inspection, pharynx normal Neck: supple, no adenopathy, thyroid normal, trachea midline Respiratory/Chest: chest non-tender, lungs clear, normal breath sounds, no respiratory distress Cardiovascular: regular rate, rhythm, no gallop, no murmur Abdomen: normal bowel sounds, soft, no organomegaly, + tenderness Extremities: non-tender, no calf tenderness, normal capillary refill Neurologic/Psychiatric: alert, normal mood/affect, oriented x 3 Skin: normal color, no rash Lymphatic: no adenopathy Laboratory Results RUN DATE: 12/12/17 [facility] LAB PAGE 1 RUN TIME: 1231 Specimen Inquiry PATIENT: ALEJANDRA KENYON LOC: [facility] U # : [id number] AGE/SX: 32/M ROOM: [facility] REG : 12/10/[address]: Sumeet Michael D.O : 1985 BED: 1 DIS : STATUS: ADM IN TLOC: SPEC #: [id number] GWEN: 12/10/17 STATUS: RES REQ #: [id number] RECD: 12/10/[address]: Christal Mcbride MD SOURCE: DRAIN-SURF ENTR: 12/10/[address]: Keerthi Doctor, Assigned SPDESC: DEANNA, Brian Silva M.D. Pasquariello, Rick D M.D. ORDERED: SURF WNNathan CU/SARAH BETH COMMENTS: Specimen Comment JANUSZ drain fluid for culture Has Specimen Been Obtained/Collected? Y Procedure Result Verified Site GRAM STAIN Final 12/11/17-828 RESULT MANY POLYS NO ORGANISMS SEEN SURFACE WOUND CULTURE Preliminary 12/12/17-1230 Organism 1 GRAM NEGATIVE BACILLI QUANITY RARE SENS SENSITIVITY TO FOLLOW Organism 2 ALPHA STREP. NOT ENTEROCOCCUS QUANITY RARE SENS NO SENSITIVITY TO FOLLOW Last 24 Hours Test 12/12/17 07:29 White Blood Count 12.32 K/uL Red Blood Count 4.18 M/uL Hemoglobin 12.4 g/dL Hematocrit 36.2 % Mean Corpuscular Volume 86.6 fL Mean Corpuscular Hemoglobin 29.7 pg Mean Corpuscular Hemoglobin Concent 34.3 g/dl Platelet Count 162 K/uL Mean Platelet Volume 9.8 fL Neutrophils (%) (Auto) 87.2 % Lymphocytes (%) (Auto) 5.0 % Monocytes (%) (Auto) 7.4 % Eosinophils (%) (Auto) 0.1 % Basophils (%) (Auto) 0.1 % Neutrophils # (Auto) 10.75 K/uL Lymphocytes # (Auto) 0.61 K/uL Monocytes # (Auto) 0.91 K/uL Eosinophils # (Auto) 0.01 K/uL Basophils # (Auto) 0.01 K/uL RDW Standard Deviation 39.6 fL RDW Coefficient of Variation 12.5 % Immature Granulocyte % (Auto) 0.2 % Immature Granulocyte # (Auto) 0.03 K/uL Sodium Level 135 mmol/L Potassium Level 3.8 mmol/L Chloride Level 103 mmol/L Carbon Dioxide Level 28 mmol/L Anion Gap 4.0 mmol/L Blood Urea Nitrogen 7 mg/dl Creatinine 1.19 mg/dl Est Creatinine Clear Calc Drug Dose 97.8 ml/min Estimated GFR () 93.1 Estimated GFR (Non- 80.3 BUN/Creatinine Ratio 6.2 Random Glucose 95 mg/dl Calcium Level 7.7 mg/dl Total Bilirubin 1.8 mg/dl Aspartate Amino Transf (AST/SGOT) 30 U/L Alanine Aminotransferase (ALT/SGPT) 43 U/L Alkaline Phosphatase 62 U/L Total Protein 5.7 gm/dl Albumin 2.4 gm/dl Globulin 3.3 gm/dl Albumin/Globulin Ratio 0.7 Assessment and Plan 31-year-old healthy male with perforated appendicitis now status post appendectomy and drain placement. Cultures now growing gram-negative bacilli and strep species, will be well covered by Zosyn, and likely can transition to IV ertapenem to allow easier outpatient therapy await final culture results. Will follow.
[2017-12-13 03:18] VITALS: TEMP 37.7
[2017-12-13] MEDS: PIPERACILL/TAZOBAC IV 3.375 GM in NSS 100ML IV SCH (03:35)
[2017-12-13] MEDS: METOCLOPRAMIDE HCL INJ 5 MG/ML 2 ML VIAL IV. SCH (05:25)
[2017-12-13] MEDS: OXYCODONE/ACETAMINOPHEN 5-325 TAB PO PRN ×3 (05:26→20:30)
[2017-12-13 07:30] VITALS: O2SAT 92
[2017-12-13 07:54] VITALS: BP 130/73; PULSE 87; TEMP 37.2; O2SAT 93
[2017-12-13] MEDS: ERTAPENEM IV 1 GM in SODIUM CHLOR 0.9% AD-VAN 50ML 50 ML IV SCH (08:35)
[2017-12-13 08:45] LABS: BASO % 0.1 %; BASO ABS # 0.01 K/uL (0-0.2); EOS % 1.1 %; EOS ABS # 0.12 K/uL (0-0.5); HEMATOCRIT 35.6 % (42-52); HEMOGLOBIN 12.1 g/dL (14.0-18.0); IG# 0.03 K/uL (0.00-0.02); LYMPH % 8.6 %; LYMPH ABS # 0.93 K/uL (1.2-3.4); MEAN CELL VOLUME 87.7 fL (80-100); MEAN CORPUSCULAR HEMOGLOBIN 29.8 pg (25-34); MEAN PLATELET VOLUME 9.5 fL (7.4-10.4); MONO % 8.8 %; MONO ABS # 0.95 K/uL (0.11-0.59); NEUT % 81.1 %; NEUT ABS # 8.72 K/uL (1.4-6.5); PLATELET COUNT 200 K/uL (130-400); RED CELL DISTRIBUTION WIDTH CV 12.6 % (11.5-14.5); RED CELL DISTRIBUTION WIDTH SD 40.7 fL (36.4-46.3); WHITE BLOOD COUNT 10.76 K/uL (4.8-10.8)
[2017-12-13 09:07] LABS: ALBUMIN 2.4 gm/dl (3.4-5.0); CALCIUM 7.7 mg/dl (8.5-10.1); CREATININE 1.05 mg/dl (0.60-1.40); POTASSIUM 3.7 mmol/L (3.5-5.1)
[2017-12-13 09:10] LABS: TOTAL PROTEIN 6.3 gm/dl (6.4-8.2)
[2017-12-13] MEDS: SODIUM CHLORIDE 0.9% 1000ML 1,000 ML IV SCH (09:28)
--- NOTE | 2017-12-13 10:44 | Infectious Disease Progress Nt ---
Progress Note Date of Service Dec 13, 2017. Subjective Pt evaluation today including: conversation w/ patient, conversation w/ family , physical exam, chart review, lab review, review of studies, conversation w/ intelligence consultant, review of inpatient medication list Patient had fever overnight, afebrile this morning. Feeling much better, now ambulating. Passing gas. No other new complaints. Cultures growing sensitive E coli and strep. All Other Systems: Reviewed and Negative Medications Current Inpatient Medications Medications (Trade) Dose Ordered Sig/Cheko Route Start Time Stop Time Status Last Admin Dose Admin Ioversol (Optiray 320) 100 ml UD PRN IV 12/09/17 20:30 12/13/17 20:29 Acetaminophen (Tylenol Tab) 650 mg Q4H PRN PO 12/10/17 00:00 01/09/18 00:00 Al Hydrox/Mg Hydrox/Simethicone (Maalox Max Susp) 15 ml Q4H PRN PO 12/10/17 00:00 01/09/18 00:00 12/12/17 09:08 15 ML Magnesium Hydroxide (Milk Of Magnesia Susp) 30 ml Q6H PRN PO 12/10/17 00:00 01/09/18 00:00 Polyethylene (Miralax Powder Packet) 17 gm DAILY PRN PO 12/10/17 00:00 01/09/18 00:00 Ondansetron HCl (Zofran Inj) 4 mg Q6H PRN IV 12/10/17 00:00 01/09/18 00:00 12/10/17 04:27 4 MG Morphine Sulfate (MoRPHine SULFATE INJ) 4 mg Q4H PRN IV 12/10/17 00:00 12/24/17 00:00 12/12/17 09:08 4 MG Sodium Chloride 1,000 ml @ 100 mls/hr Q10H IV 12/10/17 02:00 01/09/18 01:59 12/13/17 09:28 100 MLS/HR Oxycodone/ Acetaminophen (Percocet 5-325mg Tab) 1 tab Q4H PRN PO 12/10/17 16:45 12/24/17 16:44 12/12/17 04:08 1 TAB Oxycodone/ Acetaminophen (Percocet 5-325mg Tab) 2 tab Q4H PRN PO 12/11/17 10:00 12/25/17 09:59 12/13/17 05:26 2 TAB Diphenhydramine HCl (Benadryl Cap) 50 mg Q6 PRN PO 12/11/17 21:15 01/10/18 21:14 12/11/17 21:21 50 MG Metoclopramide HCl (Reglan Inj) 10 mg Q8 IV. 12/12/17 14:00 01/11/18 13:59 12/13/17 05:25 10 MG Ertapenem 1 gm/ Sodium Chloride 50 ml @ 120 mls/hr Q24H IV 12/13/17 08:00 12/23/17 07:59 12/13/17 08:35 120 MLS/HR Objective Vital Signs Date Time Temp Pulse Resp B/P (MAP) Pulse Ox O2 Delivery O2 Flow Rate FiO2 12/13/17 07:54 37.2 87 16 130/73 (92) 93 Room Air 12/13/17 07:30 92 12/13/17 03:18 37.7 12/12/17 23:20 Room Air 12/12/17 23:02 38.1 98 16 120/76 (91) 92 Room Air 12/12/17 22:34 38.1 97 90 Room Air 12/12/17 19:37 36.5 12/12/17 16:53 36.8 12/12/17 16:40 Room Air 12/12/17 15:02 37.7 114 20 132/76 (94) 92 Room Air 12/12/17 11:36 37.4 109 22 127/70 (89) 94 Room Air Physical Exam General Appearance: WD/WN, no apparent distress Eyes: normal inspection, EOMI, sclerae normal ENT: normal ENT inspection, pharynx normal Neck: supple, no adenopathy, thyroid normal, trachea midline Respiratory/Chest: chest non-tender, lungs clear, normal breath sounds, no respiratory distress Cardiovascular: regular rate, rhythm, no gallop, no murmur Abdomen: normal bowel sounds, soft, + tenderness, + pertinent finding ( Drainage much decreased, now clear) Extremities: non-tender, no calf tenderness, normal capillary refill Neurologic/Psychiatric: alert, normal mood/affect, oriented x 3 Skin: normal color, warm/dry, no rash Lymphatic: no adenopathy Laboratory Results RUN DATE: 12/13/17 [facility] LAB PAGE 1 RUN TIME: 747 Specimen Inquiry PATIENT: ALEJANDRA KENYON LOC: [facility] U # : [id number] AGE/SX: 32/M ROOM: [facility] REG : 12/10/[address]: Sumeet Michael D.O : 1985 BED: 1 DIS : STATUS: ADM IN TLOC: SPEC #: [id number] GWEN: 12/10/17 STATUS: COMP REQ #: [id number] RECD: 12/10/[address]: Christal Mcbride MD SOURCE: DRAIN-SURF ENTR: 12/10/17 [facility] DR: Keerthi Hilton, Assigned SPDESC: ABD, RLQ Brian Espinal M.D. Pasquariello, Rick D M.D. ORDERED: SURF WND CU/SARAH BETH COMMENTS: Specimen Comment JANUSZ drain fluid for culture Has Specimen Been Obtained/Collected? Y Procedure Result Verified Site GRAM STAIN Final 12/11/17 RESULT MANY POLYS NO ORGANISMS SEEN SURFACE WOUND CULTURE Final 12/13/17 Organism 1 ESCHERICHIA COLI QUANITY RARE SENS SENSITIVITY TO FOLLOW Organism 2 ALPHA STREP. NOT ENTEROCOCCUS QUANITY RARE SENS NO SENSITIVITY TO FOLLOW 1. ESCHERICHIA COLI Target Route Dose RX AB Cost M.I.C. IQ ------ ----- ------ -- ------ -------- - ------ TRIMET/SULFA S <=2/38 AMPICILLIN S <=8 AMPICILLIN/SUL S <=8/4 CEFAZOLIN S <=8 CEFOXITIN S <=8 CEFOTAXIME S <=2 CEFTRIAXONE S <=1 CEFEPIME S <=4 CEFUROXIME S <=4 IMIPENEM S <=1 GENTAMICIN S <=4 TOBRAMYCIN S <=4 AMIKACIN S <=16 CIPROFLOXACIN S <=1 LEVOFLOXACIN S <=2 ERTAPENEM S <=1 PIP/TAZO S <=16 S = SENSITIVE I = INTERMEDIATE R = RESISTANT END OF REPORT Last 24 Hours Test 12/13/17 08:25 White Blood Count 10.76 K/uL Red Blood Count 4.06 M/uL Hemoglobin 12.1 g/dL Hematocrit 35.6 % Mean Corpuscular Volume 87.7 fL Mean Corpuscular Hemoglobin 29.8 pg Mean Corpuscular Hemoglobin Concent 34.0 g/dl Platelet Count 200 K/uL Mean Platelet Volume 9.5 fL Neutrophils (%) (Auto) 81.1 % Lymphocytes (%) (Auto) 8.6 % Monocytes (%) (Auto) 8.8 % Eosinophils (%) (Auto) 1.1 % Basophils (%) (Auto) 0.1 % Neutrophils # (Auto) 8.72 K/uL Lymphocytes # (Auto) 0.93 K/uL Monocytes # (Auto) 0.95 K/uL Eosinophils # (Auto) 0.12 K/uL Basophils # (Auto) 0.01 K/uL RDW Standard Deviation 40.7 fL RDW Coefficient of Variation 12.6 % Immature Granulocyte % (Auto) 0.3 % Immature Granulocyte # (Auto) 0.03 K/uL Sodium Level 137 mmol/L Potassium Level 3.7 mmol/L Chloride Level 104 mmol/L Carbon Dioxide Level 29 mmol/L Anion Gap 4.0 mmol/L Blood Urea Nitrogen 7 mg/dl Creatinine 1.05 mg/dl Est Creatinine Clear Calc Drug Dose 110.9 ml/min Estimated GFR () 108.3 Estimated GFR (Non- 93.5 BUN/Creatinine Ratio 6.4 Random Glucose 98 mg/dl Calcium Level 7.7 mg/dl Total Bilirubin 1.6 mg/dl Aspartate Amino Transf (AST/SGOT) 26 U/L Alanine Aminotransferase (ALT/SGPT) 39 U/L Alkaline Phosphatase 79 U/L Total Protein 6.3 gm/dl Albumin 2.4 gm/dl Globulin 3.9 gm/dl Albumin/Globulin Ratio 0.6 Assessment and Plan 31-year-old healthy male with perforated appendicitis now status post appendectomy and drain placement. Cultures now growing E coli and strep species. I have change patient to IV ertapenem 1 g daily to allow outpatient therapy. Feel the patient should be on IV at least through Sunday. Will discuss.
--- NOTE | 2017-12-13 11:25 | Surgery Progress Note ---
Surgery Progress Note Date of Service Dec 13, 2017. Subjective Post OP Day: 3 + feeling well pt is doing better, passed gas and 2 times BM, pt denies nausea, no vomiting, WBC 10,000. JANUSZ 10 ml clear Objective Vital Signs: Date Time Temp Pulse Resp B/P (MAP) Pulse Ox O2 Delivery O2 Flow Rate FiO2 12/13/17 07:54 37.2 87 16 130/73 (92) 93 Room Air 12/13/17 07:30 92 12/13/17 03:18 37.7 12/12/17 23:20 Room Air 12/12/17 23:02 38.1 98 16 120/76 (91) 92 Room Air 12/12/17 22:34 38.1 97 90 Room Air 12/12/17 19:37 36.5 12/12/17 16:53 36.8 12/12/17 16:40 Room Air 12/12/17 15:02 37.7 114 20 132/76 (94) 92 Room Air 12/12/17 11:36 37.4 109 22 127/70 (89) 94 Room Air General Appearance: WD/WN, no apparent distress Head: normocephalic Neck: supple, no JVD Respiratory/Chest: chest non-tender, lungs clear, normal breath sounds Cardiovascular: regular rate, rhythm, no edema, no gallop, no JVD, no murmur Abdomen: normal bowel sounds, non tender, non distended, soft, no organomegaly Incision(s): clean, dry, intact Extremities: normal range of motion, non-tender, normal inspection Laboratory Results: Results Past 24 Hours Test 12/13/17 08:25 Range/Units White Blood Count 10.76 4.8-10.8 K/uL Red Blood Count 4.06 4.7-6.1 M/uL Hemoglobin 12.1 14.0-18.0 g/dL Hematocrit 35.6 42-52 % Mean Corpuscular Volume 87.7 80-100 fL Mean Corpuscular Hemoglobin 29.8 25-34 pg Mean Corpuscular Hemoglobin Concent 34.0 32-36 g/dl Platelet Count 200 130-400 K/uL Mean Platelet Volume 9.5 7.4-10.4 fL Neutrophils (%) (Auto) 81.1 % Lymphocytes (%) (Auto) 8.6 % Monocytes (%) (Auto) 8.8 % Eosinophils (%) (Auto) 1.1 % Basophils (%) (Auto) 0.1 % Neutrophils # (Auto) 8.72 1.4-6.5 K/uL Lymphocytes # (Auto) 0.93 1.2-3.4 K/uL Monocytes # (Auto) 0.95 0.11-0.59 K/uL Eosinophils # (Auto) 0.12 0-0.5 K/uL Basophils # (Auto) 0.01 0-0.2 K/uL RDW Standard Deviation 40.7 36.4-46.3 fL RDW Coefficient of Variation 12.6 11.5-14.5 % Immature Granulocyte % (Auto) 0.3 % Immature Granulocyte # (Auto) 0.03 0.00-0.02 K/uL Sodium Level 137 136-145 mmol/L Potassium Level 3.7 3.5-5.1 mmol/L Chloride Level 104 98-107 mmol/L Carbon Dioxide Level 29 21-32 mmol/L Anion Gap 4.0 3-11 mmol/L Blood Urea Nitrogen 7 7-18 mg/dl Creatinine 1.05 0.60-1.40 mg/dl Est Creatinine Clear Calc Drug Dose 110.9 ml/min Estimated GFR () 108.3 Estimated GFR (Non- 93.5 BUN/Creatinine Ratio 6.4 10-20 Random Glucose 98 70-99 mg/dl Calcium Level 7.7 8.5-10.1 mg/dl Total Bilirubin 1.6 0.2-1 mg/dl Aspartate Amino Transf (AST/SGOT) 26 15-37 U/L Alanine Aminotransferase (ALT/SGPT) 39 12-78 U/L Alkaline Phosphatase 79 45-117 U/L Total Protein 6.3 6.4-8.2 gm/dl Albumin 2.4 3.4-5.0 gm/dl Globulin 3.9 2.5-4.0 gm/dl Albumin/Globulin Ratio 0.6 0.9-2 Assessment & Plan full liquid diet, OOB repeat labs in am, ID consult will F/U 12/12/17 doing better, WBC down dulcolax 10 mg po x1 . 10 mg dulcolax IN full liquid diet, OOB repeat labs in am, will F/U 12/13/17 I agree with infection disease doctor treatment plan, possible D/C home tomorrow, out-pt iv antibiotic treatment, I gave pt post -op care instruction, F/U next Sunday in my office full liquid diet, OOB repeat labs in am, ID consult will F/U 12/12/17 doing better, WBC down dulcolax 10 mg po x1 . 10 mg dulcolax IN full liquid diet, OOB repeat labs in am, will F/U
--- NOTE | 2017-12-13 12:12 | DIAGNOSTIC IMAGING REPORT ---
CHEST ONE VIEW PORTABLE HISTORY: Post op fever, POD # 3 s/p perforated appendectomy COMPARISON: None. FINDINGS: The heart is normal in size. The left lung is clear. No pleural effusions. No pneumothorax. Hazy appearance the right medial lung base is likely due to vascular crowding. No focal lung consolidations to suggest pneumonia. Partial visualization of a surgical drain within the right lower quadrant. IMPRESSION: No focal lung consolidations to suggest pneumonia. Electronically signed by: Pranav Chen M.D. 12/13/2017 12:11 PM Dictated Date/Time: 12/13/2017 12:08 PM
[2017-12-13 15:02] VITALS: BP 142/77; PULSE 100; TEMP 37; O2SAT 96
--- NOTE | 2017-12-13 15:39 | Family Medicine Progress Note ---
Progress Note Date of Service Dec 13, 2017. Subjective Pt evaluation today including: conversation w/ patient, physical exam, chart review, lab review Pain: 3-5/10 improved from yesterday PO Intake: tolerating regular diet Voiding: no voiding problems This Am reports BM x 2 and passing flatus. Abdominal pain now more tolerable and 3-5/10. Denies any n/v. Otherwise asymptomatic. Pt walking laps on the unit as well Constitutional: No fever Respiratory: No shortness of breath Cardiovascular: No chest pain Abdomen: + pain, No nausea, No vomiting Male : No dysuria Medications Current Inpatient Medications Medications (Trade) Dose Ordered Sig/Cheko Route Start Time Stop Time Status Last Admin Dose Admin Ioversol (Optiray 320) 100 ml UD PRN IV 12/09/17 20:30 12/13/17 20:29 Acetaminophen (Tylenol Tab) 650 mg Q4H PRN PO 12/10/17 00:00 01/09/18 00:00 Al Hydrox/Mg Hydrox/Simethicone (Maalox Max Susp) 15 ml Q4H PRN PO 12/10/17 00:00 01/09/18 00:00 12/12/17 09:08 15 ML Magnesium Hydroxide (Milk Of Magnesia Susp) 30 ml Q6H PRN PO 12/10/17 00:00 01/09/18 00:00 Polyethylene (Miralax Powder Packet) 17 gm DAILY PRN PO 12/10/17 00:00 01/09/18 00:00 Ondansetron HCl (Zofran Inj) 4 mg Q6H PRN IV 12/10/17 00:00 01/09/18 00:00 12/10/17 04:27 4 MG Morphine Sulfate (MoRPHine SULFATE INJ) 4 mg Q4H PRN IV 12/10/17 00:00 12/24/17 00:00 12/12/17 09:08 4 MG Sodium Chloride 1,000 ml @ 50 mls/hr Q20H IV 12/10/17 02:00 01/09/18 01:59 12/13/17 09:28 100 MLS/HR Oxycodone/ Acetaminophen (Percocet 5-325mg Tab) 1 tab Q4H PRN PO 12/10/17 16:45 12/24/17 16:44 12/12/17 04:08 1 TAB Oxycodone/ Acetaminophen (Percocet 5-325mg Tab) 2 tab Q4H PRN PO 12/11/17 10:00 12/25/17 09:59 12/13/17 13:31 2 TAB Diphenhydramine HCl (Benadryl Cap) 50 mg Q6 PRN PO 12/11/17 21:15 01/10/18 21:14 12/11/17 21:21 50 MG Ertapenem 1 gm/ Sodium Chloride 50 ml @ 120 mls/hr Q24H IV 12/13/17 08:00 12/23/17 07:59 12/13/17 08:35 120 MLS/HR Objective Vital Signs Date Time Temp Pulse Resp B/P (MAP) Pulse Ox O2 Delivery O2 Flow Rate FiO2 12/13/17 15:02 37.0 100 20 142/77 (98) 96 Room Air 12/13/17 07:54 37.2 87 16 130/73 (92) 93 Room Air 12/13/17 07:30 92 12/13/17 03:18 37.7 12/12/17 23:20 Room Air 12/12/17 23:02 38.1 98 16 120/76 (91) 92 Room Air 12/12/17 22:34 38.1 97 90 Room Air 12/12/17 19:37 36.5 12/12/17 16:53 36.8 12/12/17 16:40 Room Air Physical Exam General Appearance: no apparent distress Eyes: normal inspection Neck: supple Respiratory/Chest: lungs clear, normal breath sounds Cardiovascular: regular rate, rhythm, no murmur Abdomen: normal bowel sounds, soft, + tenderness (RLQ and mild in epigastric region and RUQ), + pertinent finding (abdominal wound dressing C/D/I; JANUSZ drain with small clear liquid yellowish discharge) Extremities: non-tender, no pedal edema Neurologic/Psychiatric: alert, oriented x 3 Skin: warm/dry Laboratory Results 12/13/17 08:25 Red Blood Count 4.06, Mean Corpuscular Volume 87.7, Mean Corpuscular Hemoglobin 29.8, Mean Corpuscular Hemoglobin Concent 34.0, Mean Platelet Volume 9.5, Neutrophils (%) (Auto) 81.1, Lymphocytes (%) (Auto) 8.6, Monocytes (%) (Auto) 8.8, Eosinophils (%) (Auto) 1.1, Basophils (%) (Auto) 0.1, Neutrophils # (Auto) 8.72, Lymphocytes # (Auto) 0.93, Monocytes # (Auto) 0.95, Eosinophils # (Auto) 0.12, Basophils # (Auto) 0.01 12/13/17 08:25 Test 12/13/17 08:25 12/13/17 12:50 White Blood Count 10.76 K/uL (4.8-10.8) Red Blood Count 4.06 M/uL (4.7-6.1) Hemoglobin 12.1 g/dL (14.0-18.0) Hematocrit 35.6 % (42-52) Mean Corpuscular Volume 87.7 fL (80-100) Mean Corpuscular Hemoglobin 29.8 pg (25-34) Mean Corpuscular Hemoglobin Concent 34.0 g/dl (32-36) Platelet Count 200 K/uL (130-400) Mean Platelet Volume 9.5 fL (7.4-10.4) Neutrophils (%) (Auto) 81.1 % Lymphocytes (%) (Auto) 8.6 % Monocytes (%) (Auto) 8.8 % Eosinophils (%) (Auto) 1.1 % Basophils (%) (Auto) 0.1 % Neutrophils # (Auto) 8.72 K/uL (1.4-6.5) Lymphocytes # (Auto) 0.93 K/uL (1.2-3.4) Monocytes # (Auto) 0.95 K/uL (0.11-0.59) Eosinophils # (Auto) 0.12 K/uL (0-0.5) Basophils # (Auto) 0.01 K/uL (0-0.2) RDW Standard Deviation 40.7 fL (36.4-46.3) RDW Coefficient of Variation 12.6 % (11.5-14.5) Immature Granulocyte % (Auto) 0.3 % Immature Granulocyte # (Auto) 0.03 K/uL (0.00-0.02) Anion Gap 4.0 mmol/L (3-11) Est Creatinine Clear Calc Drug Dose 110.9 ml/min Estimated GFR () 108.3 Estimated GFR (Non- 93.5 BUN/Creatinine Ratio 6.4 (10-20) Calcium Level 7.7 mg/dl (8.5-10.1) Total Bilirubin 1.6 mg/dl (0.2-1) Aspartate Amino Transf (AST/SGOT) 26 U/L (15-37) Alanine Aminotransferase (ALT/SGPT) 39 U/L (12-78) Alkaline Phosphatase 79 U/L (45-117) Total Protein 6.3 gm/dl (6.4-8.2) Albumin 2.4 gm/dl (3.4-5.0) Globulin 3.9 gm/dl (2.5-4.0) Albumin/Globulin Ratio 0.6 (0.9-2) Urine Color YELLOW Urine Appearance CLEAR (CLEAR) Urine pH 8.0 (4.5-7.5) Urine Specific [place] 1.010 (1.000-1.030) Urine Protein NEG (NEG) Urine Glucose (UA) NEG (NEG) Urine Ketones NEG (NEG) Urine Occult Blood NEG (NEG) Urine Nitrite NEG (NEG) Urine Bilirubin NEG (NEG) Urine Urobilinogen NEG (NEG) Urine Leukocyte Esterase NEG (NEG) Assessment and Plan 31 yo M with hx of paroxysmal Afib admitted for Appendicitis with peritonitis 2/ 2 perforation. S/p appendectomy day 3 with improving pain. Passing flatus and had BMs. Tolerating regular diet. Remains on IVF and Abx per surgery. Possible discharge with IV abx tomorrow Acute Appendicitis - RLQ pain, afebrile, +leukocytosis (improved from 16.2 to 10.7 this AM) - previous history of medically managed suspected appendicitis 4 yrs prior - CT abdomen: appendicitis. distended appendix with appendicolith - Abdominal drainage culture final: rare E. coli and alpha strep not enterococcus waters-sensitive - Continue IV NS 50 mls/hr - Dced Zosyn and started on ertapenem for easier outpatient therapy - Tylenol, Percocet and Morphine for pain as needed - Zofran PRN for nausea - General Surgery consulted - s/p appendectomy day 3 - Continue IVF, Abx per ID; advance diet; OOB to chair and ambulate - follow up scheduled for Sunday outpt -ID consulted: Ertapenem continue at home at least until Sunday via peripheral IV or if longer duration may require PICC Paroxysmal Afib - currently with RRR - has never been treated for rate control or anticoagulation DVTP: SCD's only Code: Full Diet: regular diet Resident Physician Supervision Note: I was present with Dr. Espinal during the history and exam. I discussed the case with the resident and agree with the findings and plan as documented in the note. He continues to improve; less pain with increased ambulation, decreased drainage noted in JANUSZ drain. Culture results noted with waters sensitivity. Tolerating increased diet. Could be a candidate for discharge tomorrow, but will need some logistics in completing course of IV antibiotics. Documented By: Sumeet Michael Resident Involvement: Resident Care Provided Care Provided: Adult [facility]
[2017-12-13 22:53] VITALS: BP 124/70; PULSE 90; TEMP 37; O2SAT 93
[2017-12-14] MEDS: SODIUM CHLORIDE 0.9% 1000ML 1,000 ML IV SCH (00:08)
[2017-12-14] MEDS: OXYCODONE/ACETAMINOPHEN 5-325 TAB PO PRN ×2 (04:03→12:55)
[2017-12-14 07:34] LABS: BASO % 0.3 %; BASO ABS # 0.02 K/uL (0-0.2); EOS % 2.2 %; EOS ABS # 0.17 K/uL (0-0.5); HEMATOCRIT 33.6 % (42-52); HEMOGLOBIN 11.6 g/dL (14.0-18.0); IG# 0.01 K/uL (0.00-0.02); LYMPH % 13.7 %; LYMPH ABS # 1.05 K/uL (1.2-3.4); MEAN CELL VOLUME 86.4 fL (80-100); MEAN CORPUSCULAR HEMOGLOBIN 29.8 pg (25-34); MEAN CORPUSCULAR HGB CONC 34.5 g/dl (32-36); MEAN PLATELET VOLUME 9.1 fL (7.4-10.4); MONO % 9.4 %; MONO ABS # 0.72 K/uL (0.11-0.59); NEUT % 74.3 %; PLATELET COUNT 192 K/uL (130-400); RED CELL DISTRIBUTION WIDTH CV 12.7 % (11.5-14.5); RED CELL DISTRIBUTION WIDTH SD 40.5 fL (36.4-46.3); WHITE BLOOD COUNT 7.67 K/uL (4.8-10.8)
[2017-12-14 07:45] VITALS: O2SAT 96
[2017-12-14 08:06] VITALS: BP 146/88; PULSE 87; TEMP 36.9; O2SAT 96
[2017-12-14 08:06] LABS: ALBUMIN 2.4 gm/dl (3.4-5.0); CALCIUM 7.8 mg/dl (8.5-10.1); CREATININE 0.99 mg/dl (0.60-1.40); POTASSIUM 3.7 mmol/L (3.5-5.1)
[2017-12-14 08:12] LABS: TOTAL PROTEIN 6.3 gm/dl (6.4-8.2)
[2017-12-14] MEDS: ERTAPENEM IV 1 GM in SODIUM CHLOR 0.9% AD-VAN 50ML 50 ML IV SCH (09:01)
--- NOTE | 2017-12-14 10:29 | Surgery Progress Note ---
Surgery Progress Note Date of Service Dec 14, 2017. Subjective Post OP Day: 4 + feeling well, + ambulating, + bowel movement, + flatus, + pain controlled, + diet, No complaints, No chest pain, No SOB, No nausea, No vomiting Objective Vital Signs: Date Time Temp Pulse Resp B/P (MAP) Pulse Ox O2 Delivery O2 Flow Rate FiO2 12/14/17 08:06 36.9 87 16 146/88 (107) 96 Room Air 12/14/17 07:45 96 Room Air 12/13/17 22:53 37.0 90 16 124/70 (88) 93 Room Air 12/13/17 19:25 Room Air 12/13/17 15:02 37.0 100 20 142/77 (98) 96 Room Air General Appearance: WD/WN, no apparent distress Head: normocephalic, atraumatic Neck: trachea midline Respiratory/Chest: no respiratory distress, no accessory muscle use Abdomen: non distended, soft, no organomegaly, no pulsatile mass, + tenderness (at incision sites appropriate post op) Incision(s): clean, dry (dressing removed, incisions with steri strips , dried blood present, no surrounding erythema) Laboratory Results: Results Past 24 Hours Test 12/13/17 12:50 12/14/17 07:23 Range/Units Urine Color YELLOW Urine Appearance CLEAR CLEAR Urine pH 8.0 4.5-7.5 Urine Specific [place] 1.010 1.000-1.030 Urine Protein NEG NEG Urine Glucose (UA) NEG NEG Urine Ketones NEG NEG Urine Occult Blood NEG NEG Urine Nitrite NEG NEG Urine Bilirubin NEG NEG Urine Urobilinogen NEG NEG Urine Leukocyte Esterase NEG NEG White Blood Count 7.67 4.8-10.8 K/uL Red Blood Count 3.89 4.7-6.1 M/uL Hemoglobin 11.6 14.0-18.0 g/dL Hematocrit 33.6 42-52 % Mean Corpuscular Volume 86.4 80-100 fL Mean Corpuscular Hemoglobin 29.8 25-34 pg Mean Corpuscular Hemoglobin Concent 34.5 32-36 g/dl Platelet Count 192 130-400 K/uL Mean Platelet Volume 9.1 7.4-10.4 fL Neutrophils (%) (Auto) 74.3 % Lymphocytes (%) (Auto) 13.7 % Monocytes (%) (Auto) 9.4 % Eosinophils (%) (Auto) 2.2 % Basophils (%) (Auto) 0.3 % Neutrophils # (Auto) 5.70 1.4-6.5 K/uL Lymphocytes # (Auto) 1.05 1.2-3.4 K/uL Monocytes # (Auto) 0.72 0.11-0.59 K/uL Eosinophils # (Auto) 0.17 0-0.5 K/uL Basophils # (Auto) 0.02 0-0.2 K/uL RDW Standard Deviation 40.5 36.4-46.3 fL RDW Coefficient of Variation 12.7 11.5-14.5 % Immature Granulocyte % (Auto) 0.1 % Immature Granulocyte # (Auto) 0.01 0.00-0.02 K/uL Sodium Level 136 136-145 mmol/L Potassium Level 3.7 3.5-5.1 mmol/L Chloride Level 104 98-107 mmol/L Carbon Dioxide Level 29 21-32 mmol/L Anion Gap 3.0 3-11 mmol/L Blood Urea Nitrogen 7 7-18 mg/dl Creatinine 0.99 0.60-1.40 mg/dl Est Creatinine Clear Calc Drug Dose 117.6 ml/min Estimated GFR () 116.3 Estimated GFR (Non- 100.4 BUN/Creatinine Ratio 6.9 10-20 Random Glucose 95 70-99 mg/dl Calcium Level 7.8 8.5-10.1 mg/dl Total Bilirubin 1.0 0.2-1 mg/dl Aspartate Amino Transf (AST/SGOT) 31 15-37 U/L Alanine Aminotransferase (ALT/SGPT) 48 12-78 U/L Alkaline Phosphatase 87 45-117 U/L Total Protein 6.3 6.4-8.2 gm/dl Albumin 2.4 3.4-5.0 gm/dl Globulin 3.9 2.5-4.0 gm/dl Albumin/Globulin Ratio 0.6 0.9-2 Microbiology Results 12/13/17 Blood Culture, Received Pending 12/13/17 Blood Culture, Received Pending Assessment & Plan POD # 4 s/p laparoscopic appendectomy for perforated appendicitis - vitals stable, afebrile (UA, CXR negative, blood cultures pending) - leukocytosis resolved - rahat drain with serous output - abdominal pain minimal and controlled - + return of bowel function Plan: From surgical standpoint, patient may be discharged home with IV antibiotics per ID recommendations. Keep RAHAT drain Follow-up in surgical office on Sunday with Dr. Mcbride Discharge instructions reviewed with patient Rx for Percocet prn pain Dr. Mcbride has seen and examined patient , agrees with above
--- NOTE | 2017-12-14 10:35 | Consultant Recommendations ---
[employer] Recommendations Date of Service Dec 14, 2017. [employer] Recommendations No heavy lifting over 20 pounds for 3 weeks No strenuous activity until cleared by surgeon No submerging incisions underwater for 2 weeks (no bathing, swimming, or hot tubs) No driving while taking narcotic pain medication or until you are pain free You may shower. Gently clean incisions with soap and water Leave steri strips on incision for 7 days after your surgery and then remove. They may fall off on their own that is okay. Walking and light activity is encouraged to prevent blood clots from forming Record Ash drain output and color daily You will be given narcotic pain medication (Percocet) as needed for moderate to severe pain. This medication may make you drowsy and can cause constipation. To combat constipation you may take OTC stool softener such as Colace daily and drink plenty of water. You may take gentle laxative or prune juice if needed Follow-up with Dr. Mcbride on Sunday, please call office at [phone] if you have any questions or concerns No dietary restrictions but may want to stick to bland diet for next few days and advance as tolerated.
[2017-12-14] MEDS ORDERED: OXYC-57 PO (10:36)
--- NOTE | 2017-12-14 14:20 | Discharge Instructions ---
Discharge Instructions Date of Service Dec 14, 2017. Admission Reason for Admission: Acute Appendicitis Discharge Discharge Diagnosis / Problem: Perforated pancreatitis Discharge Goals Goal(s): Decrease discomfort, Diagnostic testing, Therapeutic intervention Activity Recommendations Activity Limitations: per Instructions/Follow-up section . Instructions / Follow-Up Instructions / Follow-Up Mr. Mendiola you were admitted for abdominal pain and found to have appendicitis. You were taken for surgery and your appendix was removed. However your appendix had already ruptured and leaked into your abdomen increasing your risk for infection. You were treated with IV antibiotics during your hospitalization (Zosyn and Ertapenem). You are being discharged with another 3 days of IV medications to be administered at our medical treatment unit which our social workers have arranged for. They will provide you instructions on where to go to get your daily treatments. Our social workers already have a script for the antibiotic (Rocephin). Your surgeon has also provided you with a script for pain medication. Please take as prescribed for moderate to severe pain. Advance your diet slowly as tolerated. Follow up with Dr. Mcbride as scheduled on Sunday. Additional recommendations regarding follow up and activity are included below. PLEASE FOLLOW THE FOLLOWING INSTRUCTIONS FROM YOUR SURGEON: No heavy lifting over 20 pounds for 3 weeks No strenuous activity until cleared by surgeon No submerging incisions underwater for 2 weeks (no bathing, swimming, or hot tubs) No driving while taking narcotic pain medication or until you are pain free You may shower. Gently clean incisions with soap and water Leave steri strips on incision for 7 days after your surgery and then remove. They may fall off on their own that is okay. Walking and light activity is encouraged to prevent blood clots from forming Record Ash drain output and color daily You will be given narcotic pain medication (Percocet) as needed for moderate to severe pain. This medication may make you drowsy and can cause constipation. To combat constipation you may take OTC stool softener such as Colace daily and drink plenty of water. You may take gentle laxative or prune juice if needed Follow-up with Dr. Mcbride on Sunday, please call office at [phone] if you have any questions or concerns No dietary restrictions but may want to stick to bland diet for next few days and advance as tolerated. Current Hospital Diet Patient's current hospital diet: Regular Diet Discharge Diet Recommended Diet: Regular Diet, AHA Diet (Heart Healthy) Procedures Procedures Performed: Laparoscopic appendectomy Pending Studies Studies pending at discharge: yes List of pending studies: Blood cultures are pending Medical Emergencies . Who to Call and When: Medical Emergencies: If at any time you feel your situation is an emergency, please call 911 immediately. . Non-Emergent Contact Non-Emergency issues call your: Primary Care Provider, Surgeon Call Non-Emergent contact if: temperature is above 101, your pain is worsening . . "Provider Documentation" section prepared by Brian Espinal. . Rn Patient Care Recommendations Rn Patient Care Recommendations: No heavy lifting over 20 pounds for 3 weeks No strenuous activity until cleared by surgeon No submerging incisions underwater for 2 weeks (no bathing, swimming, or hot tubs) No driving while taking narcotic pain medication or until you are pain free You may shower. Gently clean incisions with soap and water Leave steri strips on incision for 7 days after your surgery and then remove. They may fall off on their own that is okay. Walking and light activity is encouraged to prevent blood clots from forming Record Ash drain output and color daily You will be given narcotic pain medication (Percocet) as needed for moderate to severe pain. This medication may make you drowsy and can cause constipation. To combat constipation you may take OTC stool softener such as Colace daily and drink plenty of water. You may take gentle laxative or prune juice if needed Follow-up with Dr. Mcbride on Sunday, please call office at [phone] if you have any questions or concerns No dietary restrictions but may want to stick to bland diet for next few days and advance as tolerated.
[2017-12-14 14:56] VITALS: BP 146/88; PULSE 87; TEMP 36.9; O2SAT 96
--- NOTE | 2017-12-14 15:33 | Infectious Disease Progress Nt ---
Progress Note Date of Service Dec 14, 2017. Subjective Pt evaluation today including: conversation w/ patient, conversation w/ family , physical exam, chart review, lab review, review of studies, conversation w/ sap basis consultant, review of inpatient medication list Had fever again last night, otherwise feeling better. Passing gas, ambulating in hallway. No fever at present. Pain decreasing steadily. All Other Systems: Reviewed and Negative Medications Current Inpatient Medications Medications (Trade) Dose Ordered Sig/Cheko Route Start Time Stop Time Status Last Admin Dose Admin Acetaminophen (Tylenol Tab) 650 mg Q4H PRN PO 12/10/17 00:00 01/09/18 00:00 Al Hydrox/Mg Hydrox/Simethicone (Maalox Max Susp) 15 ml Q4H PRN PO 12/10/17 00:00 01/09/18 00:00 12/12/17 09:08 15 ML Magnesium Hydroxide (Milk Of Magnesia Susp) 30 ml Q6H PRN PO 12/10/17 00:00 01/09/18 00:00 Polyethylene (Miralax Powder Packet) 17 gm DAILY PRN PO 12/10/17 00:00 01/09/18 00:00 Ondansetron HCl (Zofran Inj) 4 mg Q6H PRN IV 12/10/17 00:00 01/09/18 00:00 12/10/17 04:27 4 MG Morphine Sulfate (MoRPHine SULFATE INJ) 4 mg Q4H PRN IV 12/10/17 00:00 12/24/17 00:00 12/12/17 09:08 4 MG Oxycodone/ Acetaminophen (Percocet 5-325mg Tab) 1 tab Q4H PRN PO 12/10/17 16:45 12/24/17 16:44 12/12/17 04:08 1 TAB Oxycodone/ Acetaminophen (Percocet 5-325mg Tab) 2 tab Q4H PRN PO 12/11/17 10:00 12/25/17 09:59 12/14/17 12:55 2 TAB Diphenhydramine HCl (Benadryl Cap) 50 mg Q6 PRN PO 12/11/17 21:15 01/10/18 21:14 12/11/17 21:21 50 MG Ertapenem 1 gm/ Sodium Chloride 50 ml @ 120 mls/hr Q24H IV 12/13/17 08:00 12/23/17 07:59 12/14/17 09:01 120 MLS/HR Objective Vital Signs Date Time Temp Pulse Resp B/P (MAP) Pulse Ox O2 Delivery O2 Flow Rate FiO2 12/14/17 14:56 36.9 87 16 96 Room Air 12/14/17 08:06 36.9 87 16 146/88 (107) 96 Room Air 12/14/17 07:45 96 Room Air 12/13/17 22:53 37.0 90 16 124/70 (88) 93 Room Air 12/13/17 19:25 Room Air Physical Exam General Appearance: WD/WN, no apparent distress Eyes: normal inspection, EOMI, sclerae normal ENT: normal ENT inspection, hearing grossly normal, pharynx normal Neck: supple, no adenopathy, thyroid normal, trachea midline Respiratory/Chest: chest non-tender, lungs clear, normal breath sounds, no respiratory distress Cardiovascular: regular rate, rhythm, no gallop, no murmur Abdomen: normal bowel sounds, soft, no organomegaly, + tenderness Extremities: normal range of motion, no calf tenderness, normal capillary refill Neurologic/Psychiatric: alert, normal mood/affect, oriented x 3 Skin: normal color, warm/dry, no rash Lymphatic: no adenopathy Laboratory Results Last 24 Hours Test 12/14/17 07:23 White Blood Count 7.67 K/uL Red Blood Count 3.89 M/uL Hemoglobin 11.6 g/dL Hematocrit 33.6 % Mean Corpuscular Volume 86.4 fL Mean Corpuscular Hemoglobin 29.8 pg Mean Corpuscular Hemoglobin Concent 34.5 g/dl Platelet Count 192 K/uL Mean Platelet Volume 9.1 fL Neutrophils (%) (Auto) 74.3 % Lymphocytes (%) (Auto) 13.7 % Monocytes (%) (Auto) 9.4 % Eosinophils (%) (Auto) 2.2 % Basophils (%) (Auto) 0.3 % Neutrophils # (Auto) 5.70 K/uL Lymphocytes # (Auto) 1.05 K/uL Monocytes # (Auto) 0.72 K/uL Eosinophils # (Auto) 0.17 K/uL Basophils # (Auto) 0.02 K/uL RDW Standard Deviation 40.5 fL RDW Coefficient of Variation 12.7 % Immature Granulocyte % (Auto) 0.1 % Immature Granulocyte # (Auto) 0.01 K/uL Sodium Level 136 mmol/L Potassium Level 3.7 mmol/L Chloride Level 104 mmol/L Carbon Dioxide Level 29 mmol/L Anion Gap 3.0 mmol/L Blood Urea Nitrogen 7 mg/dl Creatinine 0.99 mg/dl Est Creatinine Clear Calc Drug Dose 117.6 ml/min Estimated GFR () 116.3 Estimated GFR (Non- 100.4 BUN/Creatinine Ratio 6.9 Random Glucose 95 mg/dl Calcium Level 7.8 mg/dl Total Bilirubin 1.0 mg/dl Aspartate Amino Transf (AST/SGOT) 31 U/L Alanine Aminotransferase (ALT/SGPT) 48 U/L Alkaline Phosphatase 87 U/L Total Protein 6.3 gm/dl Albumin 2.4 gm/dl Globulin 3.9 gm/dl Albumin/Globulin Ratio 0.6 Assessment and Plan 31-year-old healthy male with perforated appendicitis now status post appendectomy and drain placement. Cultures now growing E coli and strep species. Changed to ceftriaxone because of insurance issues. To follow up with surgery Sunday.
--- NOTE | 2017-12-14 17:14 | Family Medicine Progress Note ---
Progress Note Date of Service Dec 14, 2017. Assessment and Plan For full attending attestation, see resident discharge summary from day of discharge. In brief, Mr. Mendiola is resting comfortably in the chair at bedside and reports considerable improvement in his abdominal discomfort postoperatively, which is well controlled on present medications. His bowel sounds are normal, and his is diffusely TTP of the abdomen, worse at surgical and drain sites, which are clean and without surrounding erythema. He is tolerating abx therapy well, and elects to have peripheral lines placed in the [facility] for daily ceftriaxone therapy as recommended by ID and surgery, which we would agree with. Further management per resident note.
--- NOTE | 2017-12-14 17:19 | Discharge Summary ---
Discharge Summary Date of Service Dec 14, 2017. Discharge Summary Admission Date: Dec 10, 2017 at 00:30 Discharge Date: Dec 14, 2017 Discharge Disposition: Home Principal Diagnosis: Perforated appendicitis Problems/Secondary Diagnoses: PAF Immunizations: Have You Had Influenza Vaccine: Unknown History of Tetanus Vaccine?: Unknown History of Pneumococcal: Unknown History of Hepatitis B Vaccine: Unknown Procedures: Appendectomy on 12/10/17 ABD/PELVIS IV CONTRAST ONLY CT DOSE: 353.75 mGy.cm HISTORY: Flank pain RLQ pain TECHNIQUE: Multiaxial CT images of the abdomen and pelvis were performed following the use of intravenous contrast. A dose lowering technique was utilized adhering to the principles of ALARA. COMPARISON STUDY: None. FINDINGS: Lung bases are clear. Liver spleen and pancreas enhance uniformly. Kidneys are negative for hydronephrosis. The upper abdominal bowel pattern is nonobstructive. The right flank demonstrates a distended appendix with associated appendicolith. Maximum diameters 1.5 cm. There is moderate surrounding periappendiceal infiltrative change with a trace amount of reactive fluid. There is air-containing elements throughout in this region appear to be bowel related to rather than extraluminal air. Well-defined drainable abscess or collection is not appreciated. There is a small amount of free fluid within the pelvic cul-de-sac. There are findings of scattered colonic diverticuli. There is no evidence for diverticulitis. IMPRESSION: 1. Acute appendicitis. 2. The appendix is distended to 1.5 cm with a contained appendicolith. 3. Moderate amount of periappendiceal infiltrative change combined with a small amount of surrounding reactive fluid. 4. No evidence for drainable abscess or collection at the current time. CHEST ONE VIEW PORTABLE HISTORY: Post op fever, POD # 3 s/p perforated appendectomy COMPARISON: None. FINDINGS: The heart is normal in size. The left lung is clear. No pleural effusions. No pneumothorax. Hazy appearance the right medial lung base is likely due to vascular crowding. No focal lung consolidations to suggest pneumonia. Partial visualization of a surgical drain within the right lower quadrant. IMPRESSION: No focal lung consolidations to suggest pneumonia. Consultations: Surgery - Dr. Mcbride ID - Dr. Ballard Medication Reconciliation New Medications: Oxycodone/Acetaminophen 5MG/325MG (Percocet 5MG/325MG) Tab 1 TABLET PO Q4H PRN for Pain, #18 TAB Discharge Exam Review of Systems: Constitutional: No fever Respiratory: No shortness of breath Cardiovascular: No chest pain Abdomen: + pain, No nausea, No vomiting Genitourinary - Female: No dysuria Physical Exam: General Appearance: no apparent distress Eyes: normal inspection Neck: supple Respiratory/Chest: lungs clear, normal breath sounds Cardiovascular: regular rate, rhythm, no murmur Abdomen / GI: normal bowel sounds, soft, + tenderness (mild TTP of RLQ and RUQ) Extremities: normal inspection, no pedal edema Neurologic/Psychiatric: alert, oriented x 3 Skin: warm/dry Hospital Course 31 yo M with hx of paroxysmal Afib admitted for Appendicitis with peritonitis 2/ 2 perforation. S/p appendectomy day 4 with improving pain. Passing flatus and had BMs. Tolerating regular diet. Afebrile for >24hrs with normalized WBC. Discharged with outpt IV Rocephin 2g for an additional 3 days until surgery follow up on 12/17 per ID. Acute Appendicitis - RLQ pain, afebrile, +leukocytosis (improved from 16.2 to 7.7 this AM) - previous history of medically managed suspected appendicitis 4 yrs prior - CT abdomen: appendicitis. distended appendix with appendicolith - Abdominal drainage culture final: rare E. coli and alpha strep not enterococcus waters-sensitive - Received IVF - Dced Zosyn and started on ertapenem inpatient; Dced with Rocephin 2g IV x 3 days - Received Tylenol, Percocet and Morphine for pain as needed - Received Zofran PRN for nausea - General Surgery consulted - s/p appendectomy day 4 - follow up scheduled on 12/17 outpt - discharged with Percocet for pain -ID consulted: Rocephin 2g IV until Sunday, 12/17 via peripheral IV at [facility] Paroxysmal Afib - RRR - has never been treated for rate control or anticoagulation DVTP: SCD's only Code: Full Total Time Spent: Less than 30 minutes This includes examination of the patient, discharge planning, medication reconciliation, and communication with other providers. Discharge Instructions Please refer to the electronic Patient Visit Report (Discharge Instructions) for additional information. Additional Copies To Von Beck DO
== END 2017-12-14 16:09 | disposition home or self-care (01) | DRG 340 ==
LOC: C.EDB 20:06 → C.MSW 12-10 00:30 → ENRESERV 12-10 00:40 → C.MSW 12-10 00:50
PROVIDERS: ADMIT Hospitalist; ATTEND Family Medicine
PROC: 0DTJ4ZZ Resection of Appendix, Percutaneous Endoscopic Approach (ICD-10-PCS; principal; 2017-12-10 06:45)
DX: K35.3 Acute appendicitis with localized peritonitis (principal); I48.0 Paroxysmal atrial fibrillation; Z82.49 Family history of ischemic heart disease and other diseases of the circulatory system